=== PATIENT | female | born 1970 | race Caucasian/White ===

== ENCOUNTER 2016-06-03 08:46 | Emergency (ER) | payer BC ==
[2016-06-03] MEDS ORDERED: KETOROLAC 30 MG/ML 1 ML VIAL IVP STA (09:06)
[2016-06-03] MEDS ORDERED: SODIUM CHLORIDE 0.9% 1,000 ML IV STA (09:06)
--- NOTE | 2016-06-03 09:08 | ED ---
General Adult HPI - General Chief complaint: Abdominal Pain Stated complaint: back pain,kidney stone Time Seen by Provider: 06/03/16 09:02 Source: patient, RN notes reviewed Mode of arrival: ambulatory Limitations: no limitations - History of Present Illness Initial comments: Patient's a 46-year-old female with significant past medical history for kidney stones, who presents emergency room today with a chief complaint of left-sided flank pain that started 3 days ago. Patient does admit that these symptoms are consistent with kidney stones that she's had in the past. She denies any other complaints associated symptoms. Patient denies any recent fever, chills, shortness of breath, chest pain, abdominal pain, nausea or vomiting, numbness or tingling, dysuria or hematuria, constipation or diarrhea, headaches or visual changes, or any other complaints. - Related Data Home Medications Medication Instructions Recorded Confirmed Acetaminophen Tab [Tylenol Tab] 650 mg PO Q4H PRN 06/03/16 06/03/16 Famotidine [Pepcid] 20 mg PO DAILY 06/03/16 06/03/16 Metoprolol Succinate [Toprol XL] 50 mg PO DAILY 06/03/16 06/03/16 Naltrexone HCl/Bupropion HCl 1 tab PO QID 06/03/16 06/03/16 [Contrave ER 8-90 mg Tablet] Previous Rx's Medication Instructions Recorded Hydrocodone/Acetaminophen [[place] 1 each PO Q6HR PRN #20 tab 06/03/16 5-325] Ibuprofen [Motrin] 800 mg PO Q6HR PRN #30 tab 06/03/16 Ondansetron Odt [Zofran ODT] 4 mg PO Q8HR PRN #20 tab 06/03/16 Tamsulosin [Flomax] 0.4 mg PO DAILY #10 cap 06/03/16 Allergies Allergy/AdvReac Type Severity Reaction Status Date / Time codeine Allergy Anaphylaxis Verified 06/03/16 10:27 Review of Systems ROS Statement: Those systems with pertinent positive or pertinent negative responses have been documented in the HPI. ROS Other: All systems not noted in ROS Statement are negative. Past Medical History Past Medical History: GERD/Reflux, Hypertension Additional Past Medical History / Comment(s): kidney stones History of Any Multi-Drug Resistant Organisms: None Reported Past Surgical History: Tonsillectomy, Uterine Ablation Past Psychological History: No Psychological Hx Reported Smoking Status: Never smoker Past Alcohol Use History: Occasional Past Drug Use History: Marijuana General Exam - General Exam Comments Initial Comments: General: The patient is awake and alert, in no distress, and does not appear acutely ill. Eye: Pupils are equal, round and reactive to light, extra-ocular movements are intact. No nystagmus. There is normal conjunctiva bilaterally. No signs of icterus. Ears, nose, mouth and throat: There are moist mucous membranes and no oral lesions. Neck: The neck is supple, there is no tenderness or JVD. Cardiovascular: There is a regular rate and rhythm. No murmur, rub or gallop is appreciated. Respiratory: Lungs are clear to auscultation, respirations are non-labored, breath sounds are equal. No wheezes, stridor, rales, or rhonchi. Gastrointestinal: Soft, non-distended, non-tender abdomen without masses or organomegaly noted. There is no rebound or guarding present. Mild tenderness left flank. Bowel sounds are unremarkable. Musculoskeletal: Normal ROM, no tenderness. Strength 5/5. Sensation intact. Pulses equal bilaterally 2+. Neurological: A&O x 3. CN II-XII intact, There are no obvious motor or sensory deficits. Coordination appears grossly intact. Speech is normal. Skin: Skin is warm and dry and no rashes or lesions are noted. Psychiatric: Cooperative, appropriate mood & affect, normal judgment. Limitations: no limitations Course Vital Signs 06/03/16 06/03/16 08:47 10:33 Temperature 98.6 F 98.8 F Pulse Rate 82 70 Respiratory 18 16 Rate Blood Pressure 146/86 168/92 O2 Sat by Pulse 100 96 Oximetry Medical Decision Making - Medical Decision Making Is reexamined at this time shows no signs of distress. Feeling better after medication given in the emergency room. Patient does admit that these feelings are consistent with kidney shows a 7 the past. Does have some hematuria. No sign of infection. Remaining labs unremarkable. KUB negative for any acute abnormalities. - Lab Data Result diagrams: 06/03/16 10:00 06/03/16 10:00 Lab Results 06/03/16 06/03/16 06/03/16 Range/Units 09:09 10:00 10:00 WBC 6.9 (3.8-10.6) k/uL RBC 4.31 (3.80-5.40) m/uL Hgb 13.5 (11.4-16.0) gm/dL Hct 40.3 (34.0-46.0) % MCV 93.6 (80.0-100.0) fL MCH 31.3 (25.0-35.0) pg MCHC 33.4 (31.0-37.0) g/dL RDW 15.2 (11.5-15.5) % Plt Count 219 (150-450) k/uL Neutrophils % 65 % Lymphocytes % 24 % Monocytes % 5 % Eosinophils % 3 % Basophils % 1 % Neutrophils # 4.5 (1.3-7.7) k/uL Lymphocytes # 1.7 (1.0-4.8) k/uL Monocytes # 0.3 (0-1.0) k/uL Eosinophils # 0.2 (0-0.7) k/uL Basophils # 0.1 (0-0.2) k/uL Sodium 140 (137-145) mmol/L Potassium 4.6 (3.5-5.1) mmol/L Chloride 107 (98-107) mmol/L Carbon Dioxide 23 (22-30) mmol/L Anion Gap 10 mmol/L BUN 11 (7-17) mg/dL Creatinine 0.62 (0.52-1.04) mg/dL Est GFR (MDRD) Af Amer >60 (>60 ml/min/1.73 sqM) Est GFR (MDRD) Non-Af >60 (>60 ml/min/1.73 sqM) Glucose 97 (74-99) mg/dL Calcium 8.7 (8.4-10.2) mg/dL Total Bilirubin 0.4 (0.2-1.3) mg/dL AST 18 (14-36) U/L ALT 31 (9-52) U/L Alkaline Phosphatase 88 (38-126) U/L Total Protein 6.8 (6.3-8.2) g/dL Albumin 3.9 (3.5-5.0) g/dL Amylase 58 (30-110) U/L Lipase 123 (23-300) U/L Urine Color Yellow Urine Appearance Cloudy H (Clear) Urine pH 6.0 (5.0-8.0) Ur Specific [place] 1.020 (1.001-1.035) Urine Protein Trace H (Negative) Urine Glucose (UA) Negative (Negative) Urine Ketones Negative (Negative) Urine Blood Small H (Negative) Urine Nitrite Negative (Negative) Urine Bilirubin Negative (Negative) Urine Urobilinogen <2.0 (<2.0) mg/dL Ur Leukocyte Esterase Negative (Negative) Urine RBC <1 (0-5) /hpf Urine WBC 1 (0-5) /hpf Ur Squamous Epith Cells 8 H (0-4) /hpf Urine Mucus Rare H (None) /hpf Disposition Clinical Impression: Kidney stone Disposition: HOME SELF-CARE Condition: Good Instructions: Kidney Stones (ED) Additional Instructions: Please use medication as discussed. Please follow-up with family doctor in the next 2 days of symptoms have not improved. Please return to emergency room if the symptoms increase or worsen or for any other concerns. Prescriptions: Hydrocodone/Acetaminophen [[place] 5-325] 1 each PO Q6HR PRN #20 tab PRN Reason: Pain Ibuprofen [Motrin] 800 mg PO Q6HR PRN #30 tab PRN Reason: Pain Ondansetron Odt [Zofran ODT] 4 mg PO Q8HR PRN #20 tab PRN Reason: Nausea Tamsulosin [Flomax] 0.4 mg PO DAILY #10 cap Time of Disposition: 10:50
[2016-06-03 09:22] LABS: Appearance,Urine Cloudy (Clear); Bilirubin,Urine Negative (Negative); Glucose,Urine (UA) Negative (Negative); Ketones,Urine Negative (Negative); Leukocyte Esterase,Urine Negative (Negative); Mucus,Urine Rare /hpf; Nitrite,Urine Negative (Negative); Particle Count 2702; Protein,Urine Trace (Negative); RBC,Urine <1 /hpf (0-5); Squamous Epithelial Cell,Urine 8 /hpf (0-4); UA Billing (MACRO vs. MICRO) MICRO; Urobilinogen,Urine <2.0 mg/dL (<2.0); WBC,Urine 1 /hpf (0-5)
[2016-06-03 10:16] LABS: Basophils # (A) 0.1 k/uL (0-0.2); Basophils % (A) 1 %; CHCM 33.2; Eosinophils # (A) 0.2 k/uL (0-0.7); Eosinophils % (A) 3 %; HCT 40.3 % (34.0-46.0); HDW 2.46; HGB 13.5 gm/dL (11.4-16.0); Luc # (Auto) 0.14; Luc % (Auto) 2; Lymphocytes # (A) 1.7 k/uL (1.0-4.8); Lymphocytes % (A) 24 %; MCH 31.3 pg (25.0-35.0); MCHC 33.4 g/dL (31.0-37.0); MCV 93.6 fL (80.0-100.0); Mean Platelet Volume 6.7; Monocytes # (A) 0.3 k/uL (0-1.0); Monocytes % (A) 5 %; Neutrophils # (A) 4.5 k/uL (1.3-7.7); Neutrophils % (A) 65 %; RBC 4.31 m/uL (3.80-5.40); RDW 15.2 % (11.5-15.5); WBC 6.9 k/uL (3.8-10.6); WBC (Perox) 6.79
[2016-06-03 10:29] LABS: ALT 31 U/L (9-52); AST 18 U/L (14-36); Alkaline Phosphatase 88 U/L (38-126); Amylase 58 U/L (30-110); Anion Gap 10 mmol/L; Blood Urea Nitrogen 11 mg/dL (7-17); Calcium 8.7 mg/dL (8.4-10.2); Carbon Dioxide 23 mmol/L (22-30); Chloride 107 mmol/L (98-107); Glucose 97 mg/dL (74-99); Non-African American GFR(MDRD) >60 (>60 ml/min/1.73 sqM); Potassium 4.6 mmol/L (3.5-5.1); Sodium 140 mmol/L (137-145); Total Bilirubin 0.4 mg/dL (0.2-1.3); Total Protein 6.8 g/dL (6.3-8.2)
[2016-06-03 10:34] VITALS: PULSE 70; RESP 16; TEMP 98.8
--- NOTE | 2016-06-03 10:35 | XR ---
Abdomen HISTORY: Pain Frontal view of the abdomen on 2 images There is degenerative disc disease, mild spinal curvature in the lumbar spine. No pneumoperitoneum or bowel obstruction. Lung bases are clear. No pathologic calcification evident. IMPRESSION: No significant abnormalities evident within the abdomen as described
[2016-06-03 11:29] VITALS: BP 158/98
== END 2016-06-03 11:26 | disposition home or self-care (01) ==
LOC: EC 08:46
DX: N20.0 Calculus of kidney (principal); R10.9 Unspecified abdominal pain; I10 Essential (primary) hypertension; K21.9 Gastro-esophageal reflux disease without esophagitis; Z79.899 Other long term (current) drug therapy; Z88.5 Allergy status to narcotic agent
CPT/HCPCS: 36415; 80053; 82150; 83690; 85025; 81001; 74000; 99284; 96374; 96361; J1885

== ENCOUNTER → 2016-08-23 | Outpatient (CLI) | payer BC ==
[2016-08-23 15:06] VITALS: BP 170/85; PULSE 76; TEMP 98.4; BMI 39.8
--- NOTE | 2016-08-23 19:21 | P.HPBAR ---
Bariatric H&P - History & Physicial H&P Date: 08/23/16 History & Physicial: Visit/CC: initial bariatric consult Patient initial contact: Initial weight: Initial weight in pounds: Height: 5 ft 5 in Initial BMI: Last weight: Current weight: 108.635 kg Current weight in pounds: 239.50 Current BMI: 39.8 [place] body weight (based on NIH guidelines): 56.699 kg Excess body weight loss: The patient is a 46 year-old F who presents for Bariatric Assessment. Patient here today for a new patient clinic evaluation. She is interested in bariatric surgery. The patient suffers from heartburn that is controlled with PPIs. She knows a family member who I performed a sleeve gastrectomy on. Her weight is currently at her heaviest. She is 3 months into a 6 month supervised weight loss program. Denies DVT or dysphagia. Not interested in gastric bypass. No prior upper endoscopy. Review of Systems The patient denies any acute changes in vision or hearing, no dysphagia or odynophagia, no chest pain or shortness of breath, no dysuria or hematuria, no headache, no runny nose, no rectal bleeding or melena, no unexplained weight loss Past Medical History Past Medical History: GERD/Reflux, Hypertension Additional Past Medical History / Comment(s): kidney stones History of Any Multi-Drug Resistant Organisms: None Reported Past Surgical History: Tonsillectomy, Uterine Ablation Past Psychological History: No Psychological Hx Reported Smoking Status: Never smoker Surgical - Exam Vital Signs Temp Pulse BP 98.4 F 76 170/85 08/23/16 15:02 08/23/16 15:02 08/23/16 15:02 Physical exam: General: Well-developed, well-nourished HEENT: Normocephalic, sclerae nonicteric Abdomen: Nontender, nondistended Extremities: No edema Neuro: Alert and oriented Bariatric Assessment & Plan (1) Morbid obesity Narrative/Plan: The patient's chronic reflux was discussed. This is a relative contraindication to sleeve gastrectomy. The increased risk of exacerbation of reflux was reviewed. She is not interested in any other bariatric surgery at this point. We'll plan upper endoscopy in October. The patient will continue to consider her options. We'll plan follow-up back in the office after the upper endoscopy is performed. Status: Acute Bariatric Checklist Checklist: Plan: Checklist: EGD: 1. Hiatal hernia: 2. H. Pylori: HgbA1c: Vitamin D: Smoking: Never smoker Primary care physician referral: dr ortiz Psychiatry clearance: Cardiology clearance: Sleep study: Diet journal: VTE risk score: VTE risk level: Rehab needs at discharge:
== END ==
LOC: BARWHC3 14:15
PROVIDERS: ATTEND Surgery
DX: Z48.815 Encounter for surgical aftercare following surgery on the digestive system (principal); E66.01 Morbid (severe) obesity due to excess calories; Z98.84 Bariatric surgery status
CPT/HCPCS: 99211

== ENCOUNTER 2016-09-14 08:56 | Day surgery (SDC) | payer BC ==
[2016-09-08 09:10] VITALS: BMI 40.4
[2016-09-14] MEDS: LACTATED RINGERS 1,000 ML IV SCH ×2 (08:52→09:14)
[2016-09-14 08:53] VITALS: TEMP 98.3
[~2016-09-14 08:56] MED LIST changes: +LIDOCAINE 1% 20 ML VIAL (10MG/ML) FOR IV START INTRADERMA PRN; -PROPOFOL 10 MG/ML 20 ML VIAL IV ONE
--- NOTE | 2016-09-14 09:22 | P.GSHP ---
History of Present Illness H&P Date: 09/14/16 Chief Complaint: GERD Patient seen in the bariatric clinic as an outpatient. She is interested in sleeve gastrectomy. She has additional complaints of reflux at times. She has never had an upper endoscopy performed. Past Medical History Past Medical History: GERD/Reflux, Hypertension Additional Past Medical History / Comment(s): kidney stones History of Any Multi-Drug Resistant Organisms: None Reported Past Surgical History: Tonsillectomy, Uterine Ablation Additional Past Surgical History / Comment(s): BENIGN RT BREAST BX Past Anesthesia/Blood Transfusion Reactions: No Reported Reaction Smoking Status: Never smoker - Past Family History Mother Family Medical History: No Reported History Medications and Allergies Home Medications Medication Instructions Recorded Confirmed Type Famotidine [Pepcid] 40 mg PO DAILY 06/03/16 09/14/16 History Metoprolol Succinate [Toprol XL] 50 mg PO DAILY 06/03/16 09/14/16 History Hydrochlorothiazide [Hydrodiuril] 1 tab PO DAILY 08/23/16 09/14/16 History Allergies Allergy/AdvReac Type Severity Reaction Status Date / Time adhesive tape Allergy BLISTERS Verified 09/14/16 08:33 codeine Allergy Anaphylaxis Verified 09/14/16 08:33 Surgical - Exam Vital Signs Temp Pulse Resp BP Pulse Ox 98.3 F 78 18 170/98 97 09/14/16 08:51 09/14/16 08:51 09/14/16 08:51 09/14/16 08:51 09/14/16 08:51 Physical exam: General: Well-developed, well-nourished HEENT: Normocephalic, sclerae nonicteric Abdomen: Nontender, nondistended Extremities: No edema Neuro: Alert and oriented Assessment and Plan (1) GERD (gastroesophageal reflux disease) Narrative/Plan: Will proceed with upper endoscopy at this time. Status: Acute
--- NOTE | 2016-09-14 09:28 | P.PCN ---
Date of Procedure: 09/14/16 Preoperative Diagnosis: Postoperative Diagnosis: Procedure(s) Performed: Preoperative Dx: GERD, obesity Postoperative Dx: Minimal gastritis Procedure: EGD with Bx Anesthesia: Sedation Endoscopist: Dr. Angel Specimens: Antrum Endoscopic Procedure: The patient was on the endoscopy table in the left decubitus position. The Olympus gastroscope was inserted into the oropharynx and passed under direct visualization to the region of the third portion of the duodenum. From that point the scope was slowly withdrawn inspecting all surfaces carefully. There were no neoplastic inflammatory or polypoid lesions throughout the duodenum. The pylorus was widely patent. The stomach was carefully inspected. There was minimal gastritis present. A biopsy of the antrum took place to rule out H. pylori. Retroflexion revealed a normal hiatus. The esophagus was then carefully examined. There were no neoplastic inflammatory or polypoid lesions throughout the visualized esophagus. The patient was then taken to the recovery room in stable condition per anesthesia guidelines. Recommendations: Await biopsy results. Follow-up in the bariatric clinic. Implants: Indications for Procedure: Operative Findings: Description of Procedure:
[2016-09-14 09:37] VITALS: RESP 16
[2016-09-14 10:03] VITALS: BP 137/83; PULSE 71
== END 2016-09-14 10:13 | disposition home or self-care (01) ==
LOC: ORWHC2ENDO 08:56
PROVIDERS: ATTEND Surgery
DX: K29.50 Unspecified chronic gastritis without bleeding (principal); K21.9 Gastro-esophageal reflux disease without esophagitis; E66.01 Morbid (severe) obesity due to excess calories; I10 Essential (primary) hypertension; Z79.899 Other long term (current) drug therapy; Z88.5 Allergy status to narcotic agent; Z91.048 Other nonmedicinal substance allergy status
CPT/HCPCS: 43239; 81025; 88305; 88342

== ENCOUNTER → 2016-09-14 | Day surgery (SDC) | payer BC ==
[~2016-09-14] MED LIST: PROPOFOL 10 MG/ML 20 ML VIAL IV ONE
== END ==
LOC: ORWHC2ENDO 08:29
PROVIDERS: ATTEND Surgery
DX: E66.01 Morbid (severe) obesity due to excess calories (principal); Z88.5 Allergy status to narcotic agent; Z53.9 Procedure and treatment not carried out, unspecified reason

== ENCOUNTER → 2016-10-25 | Outpatient (CLI) | payer BC ==
[2016-10-25 15:39] VITALS: BP 156/89; PULSE 87; RESP 20; TEMP 99.1; BMI 39.6
== END | disposition home or self-care (01) ==
LOC: BARWHC3 14:48
PROVIDERS: ATTEND Surgery
DX: Z48.815 Encounter for surgical aftercare following surgery on the digestive system (principal); Z98.84 Bariatric surgery status; Z01.812 Encounter for preprocedural laboratory examination
CPT/HCPCS: 99211

== ENCOUNTER → 2017-01-02 | Outpatient (CLI) | payer BC ==
[2017-01-02 15:41] LABS: EKG EKG PERFORMED
[2017-01-02 15:50] LABS: Basophils % (A) 1 %; CH 31.8; CHCM 33.5; Eosinophils # (A) 0.2 k/uL (0-0.7); Eosinophils % (A) 3 %; HCT 40.3 % (34.0-46.0); HDW 2.48; HGB 13.3 gm/dL (11.4-16.0); Luc # (Auto) 0.17; Luc % (Auto) 2; Lymphocytes % (A) 26 %; MCH 31.5 pg (25.0-35.0); MCHC 33.1 g/dL (31.0-37.0); MCV 95.4 fL (80.0-100.0); Monocytes # (A) 0.4 k/uL (0-1.0); Monocytes % (A) 5 %; Neutrophils # (A) 4.9 k/uL (1.3-7.7); Neutrophils % (A) 63 %; RBC 4.23 m/uL (3.80-5.40); RDW 12.6 % (11.5-15.5); WBC 7.7 k/uL (3.8-10.6); WBC (Perox) 8.27
[2017-01-02 15:57] LABS: ALT 42 U/L (9-52); AST 27 U/L (14-36); Alkaline Phosphatase 84 U/L (38-126); Anion Gap 9 mmol/L; Blood Urea Nitrogen 9 mg/dL (7-17); Calcium 9.4 mg/dL (8.4-10.2); Carbon Dioxide 27 mmol/L (22-30); Chloride 106 mmol/L (98-107); Glucose 83 mg/dL (74-99); Non-African American GFR(MDRD) >60 (>60 ml/min/1.73 sqM); Potassium 4.2 mmol/L (3.5-5.1); Sodium 142 mmol/L (137-145); Total Bilirubin 0.3 mg/dL (0.2-1.3)
== END | disposition home or self-care (01) ==
LOC: LABPAT 15:02
PROVIDERS: ATTEND Surgery
DX: Z01.810 Encounter for preprocedural cardiovascular examination (principal); Z01.812 Encounter for preprocedural laboratory examination
CPT/HCPCS: 36415; 80053; 85025; 93005

== ENCOUNTER → 2017-02-01 | Outpatient (CLI) | payer BC ==
[2017-02-01 10:01] VITALS: BP 118/68; PULSE 91; RESP 16; TEMP 98.7; BMI 38.5
--- NOTE | 2017-02-01 10:04 | P.BASOAP ---
Subjective Progress Note Date: 02/01/17 Principal diagnosis: Morbid obesity Patient here today after sleeve gastrectomy last week. She is doing well. Tolerating liquid diet. No discomfort at this time. Denies heartburn. No vomiting. No nausea. Denies fevers or chills. She is tolerating approximately 45 g of protein daily. She has 60-80 ounces of liquids daily. Objective - Vital Signs Vital signs: Vital Signs Temp 98.7 F 02/01/17 09:58 Pulse 91 02/01/17 09:58 Resp 16 02/01/17 09:58 BP 118/68 02/01/17 09:58 Pulse Ox Intake & Output 01/31/17 02/01/17 02/01/17 18:59 06:59 18:59 Weight 105.035 kg - Exam Abdomen: Soft, nondistended, nontender, incision clean and dry Assessment/Plan (1) Morbid obesity Narrative/Plan: Doing well postoperatively. Dietary evaluation today. Follow-up 2 weeks. Plan: Date: 02/01/17 Initial Weight: 108.635 kg Initial BMI: 39.8 Current Weight: 105.035 kg Current BMI: 38.5 Type of Surgery: Total Volume in Band: Previous Volume: Volume Removed: Volume Added: Band Size:
== END | disposition home or self-care (01) ==
LOC: BARWHC3 09:47
PROVIDERS: ATTEND Surgery
DX: E66.01 Morbid (severe) obesity due to excess calories (principal); Z68.38 Body mass index [BMI] 38.0-38.9, adult
CPT/HCPCS: 97803; 99211

== ENCOUNTER → 2017-02-21 | Outpatient (CLI) | payer BC ==
[2017-02-21 15:02] VITALS: BP 184/90; PULSE 76; RESP 16; TEMP 99.4; BMI 37.5
[2017-02-21 16:19] LABS: HCT 39.3 % (34.0-46.0); HGB 12.7 gm/dL (11.4-16.0); MCH 30.6 pg (25.0-35.0); MCHC 32.2 g/dL (31.0-37.0); MCV 95.1 fL (80.0-100.0); Mean Platelet Volume 7.5; Platelet Count 312 k/uL (150-450); RBC 4.13 m/uL (3.80-5.40); RDW 13.7 % (11.5-15.5); WBC 7.8 k/uL (3.8-10.6)
[2017-02-21 16:22] LABS: ALT 48 U/L (9-52); AST 21 U/L (14-36); Albumin 4.2 g/dL (3.5-5.0); Alkaline Phosphatase 66 U/L (38-126); Anion Gap 10 mmol/L; Blood Urea Nitrogen 12 mg/dL (7-17); Calcium 9.4 mg/dL (8.4-10.2); Carbon Dioxide 28 mmol/L (22-30); Chloride 105 mmol/L (98-107); Glucose 91 mg/dL (74-99); Potassium 4.6 mmol/L (3.5-5.1); Sodium 143 mmol/L (137-145); Total Bilirubin 0.5 mg/dL (0.2-1.3); Total Protein 6.9 g/dL (6.3-8.2)
--- NOTE | 2017-02-21 17:12 | P.BASOAP ---
Subjective Progress Note Date: 02/21/17 Principal diagnosis: Morbid obesity Patient doing well today. Surgery was approximately 1 month ago. She is due for one month labs. 6 pounds of weight loss. Actually is been taking in too much protein and we'll decrease that somewhat. Adequate liquid intake. Denies nausea or vomiting. Only had one episode of heartburn after eating Fritos. Objective - Vital Signs Vital signs: Vital Signs Temp 99.4 F 02/21/17 15:00 Pulse 76 02/21/17 15:00 Resp 16 02/21/17 15:00 BP 184/90 02/21/17 15:00 Pulse Ox Intake & Output 02/20/17 02/21/17 02/21/17 18:59 06:59 18:59 Weight 102.228 kg - Exam Abdomen: Soft, nontender, nondistended, incision clean and dry - Labs CBC & Chem 7: 02/21/17 15:43 02/21/17 15:43 Assessment/Plan (1) Morbid obesity Narrative/Plan: Continue dietary and excised regimen. Check one month labs. Decrease overall protein intake. Follow-up 4-6 weeks Plan: Date: 02/21/17 Initial Weight: 108.635 kg Initial BMI: 39.8 Current Weight: 102.228 kg Current BMI: 37.5 Type of Surgery: Total Volume in Band: Previous Volume: Volume Removed: Volume Added: Band Size:
[2017-02-22 01:50] LABS: Vitamin D 25 Hydroxy 20.1 ng/mL (30.0-100.0)
[2017-02-22 01:51] LABS: Folate, Serum 18.8 ng/mL
== END | disposition home or self-care (01) ==
LOC: BARWHC3 14:38
PROVIDERS: ATTEND Surgery
DX: E66.01 Morbid (severe) obesity due to excess calories (principal); Z68.37 Body mass index [BMI] 37.0-37.9, adult
CPT/HCPCS: 80053; 82306; 82607; 82746; 83540; 84425; 85027; 97803; 99211

== ENCOUNTER → 2017-04-04 | Outpatient (CLI) | payer BC ==
--- NOTE | 2017-04-06 08:59 | MM ---
Reason for exam: screening (asymptomatic). Last mammogram was performed 1 year and 5 months ago. History: Benign US biopsy breast VAD RT of the right breast, November 06, 2015. Physical Findings: A clinical breast exam by your physician is recommended on an annual basis and results should be correlated with mammographic findings. MG 3D Screening Mammo W/Cad Bilateral CC and MLO view(s) were taken. Prior study comparison: November 06, 2015, right breast MG diagnostic mammo RT wo CAD. October 27, 2015, right breast MG work up mamm w CAD RT. The breast tissue is heterogeneously dense. This may lower the sensitivity of mammography. Previous mammotome biopsy in the right breast. No significant changes when compared with prior studies. ASSESSMENT: Negative, BI-RAD 1 RECOMMENDATION: Routine screening mammogram of both breasts in 1 year.
== END | disposition home or self-care (01) ==
LOC: RADMAMWWP 14:55
PROVIDERS: ATTEND Obstetrics & Gynecology
DX: Z12.31 Encounter for screening mammogram for malignant neoplasm of breast (principal)
CPT/HCPCS: 77063; 77067

== ENCOUNTER → 2017-04-25 | Outpatient (CLI) | payer BC ==
[2017-04-25 15:22] VITALS: BP 169/79; PULSE 73; RESP 16; TEMP 99.1
[2017-04-25 15:29] VITALS: BMI 33.9
[2017-04-25 16:24] LABS: HCT 41.6 % (34.0-46.0); HGB 13.7 gm/dL (11.4-16.0); MCH 29.7 pg (25.0-35.0); MCHC 32.8 g/dL (31.0-37.0); MCV 90.7 fL (80.0-100.0); Mean Platelet Volume 7.6; Platelet Count 263 k/uL (150-450); RBC 4.59 m/uL (3.80-5.40); RDW 13.4 % (11.5-15.5); WBC 6.9 k/uL (3.8-10.6)
[2017-04-25 16:48] LABS: ALT 17 U/L (9-52); AST 18 U/L (14-36); Albumin 4.3 g/dL (3.5-5.0); Alkaline Phosphatase 71 U/L (38-126); Anion Gap 11 mmol/L; Blood Urea Nitrogen 17 mg/dL (7-17); Calcium 9.5 mg/dL (8.4-10.2); Carbon Dioxide 27 mmol/L (22-30); Chloride 104 mmol/L (98-107); Glucose 88 mg/dL (74-99); Potassium 4.4 mmol/L (3.5-5.1); Sodium 142 mmol/L (137-145); Total Bilirubin 0.6 mg/dL (0.2-1.3)
--- NOTE | 2017-04-25 16:55 | P.BASOAP ---
Subjective Progress Note Date: 04/25/17 Principal diagnosis: Morbid obesity Patient has had good weight loss since last visit. No nausea or vomiting. Rarely has episodes of reflux. She is due for 3 months labs at this time. Objective - Vital Signs Vital signs: Vital Signs Temp 99.1 F 04/25/17 15:04 Pulse 73 04/25/17 15:04 Resp 16 04/25/17 15:04 BP 169/79 04/25/17 15:04 Pulse Ox Intake & Output 04/24/17 04/25/17 04/25/17 18:59 06:59 18:59 Weight 92.533 kg - Exam Abdomen: Soft, nontender, nondistended - Labs CBC & Chem 7: 04/25/17 15:52 04/25/17 15:52 Labs: Abnormal Lab Results - Last 24 Hours (Table) 04/25/17 Range/Units 15:52 Creatinine 0.50 L (0.52-1.04) mg/dL Assessment/Plan (1) Morbid obesity Narrative/Plan: Will check 3 months labs at this time. Continue antiacids for reflux. Follow- up 6 weeks. Plan: Date: 04/25/17 Initial Weight: 108.635 kg Initial BMI: Current Weight: 92.533 kg Current BMI: 33.9 Type of Surgery: Total Volume in Band: Previous Volume: Volume Removed: Volume Added: Band Size:
[2017-04-26 01:01] LABS: Vitamin D 25 Hydroxy 24.3 ng/mL (30.0-100.0)
== END | disposition home or self-care (01) ==
LOC: BARWHC3 14:15
PROVIDERS: ATTEND Surgery
DX: E66.01 Morbid (severe) obesity due to excess calories (principal); K90.89 Other intestinal malabsorption; E55.9 Vitamin D deficiency, unspecified; Z71.3 Dietary counseling and surveillance; Z68.33 Body mass index [BMI] 33.0-33.9, adult
CPT/HCPCS: 36415; 80053; 82306; 82607; 83540; 84425; 85027; 97803; 99211

== ENCOUNTER → 2017-06-06 | Outpatient (CLI) | payer BC ==
[2017-06-06 13:08] VITALS: BP 159/89; PULSE 71; RESP 16; TEMP 98.5; BMI 33.1
--- NOTE | 2017-06-06 14:47 | P.BASOAP ---
Subjective Progress Note Date: 06/06/17 Principal diagnosis: Morbid obesity Patient doing well today. 5 pounds weight loss since last visit. She is exercising more. Over 60 g of protein per day. Last visit she had her 3 month labs checked and her vitamin D was low. She started vitamin supplementation. No heartburn on her antiacids. Objective - Vital Signs Vital signs: Vital Signs Temp 98.5 F 06/06/17 13:06 Pulse 71 06/06/17 13:06 Resp 16 06/06/17 13:06 BP 159/89 06/06/17 13:06 Pulse Ox Intake & Output 06/05/17 06/06/17 06/06/17 18:59 06:59 18:59 Weight 90.265 kg - Exam Abdomen: Soft, nontender, nondistended Assessment/Plan (1) Morbid obesity Narrative/Plan: Continue dietary and exercise regimen. Continue vitamin D supplementation. Will plan follow-up visit in 6 weeks. We'll check 6 month labs at that time. Plan: Date: 06/06/17 Initial Weight: 108.635 kg Initial BMI: 39.8 Current Weight: 90.265 kg Current BMI: 33.1 Type of Surgery: Total Volume in Band: Previous Volume: Volume Removed: Volume Added: Band Size:
== END | disposition home or self-care (01) ==
LOC: BARWHC3 12:41
PROVIDERS: ATTEND Surgery
DX: E66.01 Morbid (severe) obesity due to excess calories (principal); Z68.33 Body mass index [BMI] 33.0-33.9, adult
CPT/HCPCS: 99211

== ENCOUNTER → 2017-07-25 | Outpatient (CLI) | payer BC ==
[2017-07-25 13:06] VITALS: BP 190/85; PULSE 53; RESP 20; TEMP 98.6; BMI 31.9
--- NOTE | 2017-07-25 13:53 | P.BASOAP ---
Subjective Progress Note Date: 07/25/17 Principal diagnosis: Morbid obesity Patient returns to clinic today. Sleeve gastrectomy last January. Last visit in May. Doing well at this time. Her reflux is improved after buying a new pillow. Still on PPIs. No nausea or vomiting. No increase in hunger. No abdominal pain. She does complain of a lump in the left upper arm. This mass has been present for the last few years. Objective - Vital Signs Vital signs: Vital Signs Temp 98.6 F 07/25/17 13:02 Pulse 53 L 07/25/17 13:02 Resp 20 07/25/17 13:02 BP 190/85 07/25/17 13:02 Pulse Ox Intake & Output 07/24/17 07/25/17 07/25/17 18:59 06:59 18:59 Weight 87.135 kg - Exam Abdomen: Soft, nontender, nondistended Left upper arm with 4 x 5 cm lipomatous mass Assessment/Plan (1) Morbid obesity Narrative/Plan: Continue antiacid therapy. Will schedule outpatient lipoma removal. Follow-up in bariatric center in 6 weeks. Plan: Date: 07/25/17 Initial Weight: 108.635 kg Initial BMI: 39.8 Current Weight: 87.135 kg Current BMI: 31.9 Type of Surgery: Total Volume in Band: Previous Volume: Volume Removed: Volume Added: Band Size:
[2017-07-25 14:58] LABS: HGB 14.5 gm/dL (11.4-16.0); MCH 31.4 pg (25.0-35.0); MCV 95.1 fL (80.0-100.0); Mean Platelet Volume 7.3; Platelet Count 248 k/uL (150-450); RBC 4.63 m/uL (3.80-5.40); RDW 13.8 % (11.5-15.5)
[2017-07-25 15:16] LABS: ALT 28 U/L (9-52); AST 18 U/L (14-36); Albumin 4.2 g/dL (3.5-5.0); Alkaline Phosphatase 67 U/L (38-126); Anion Gap 13 mmol/L; Blood Urea Nitrogen 18 mg/dL (7-17); Calcium 9.3 mg/dL (8.4-10.2); Carbon Dioxide 27 mmol/L (22-30); Chloride 104 mmol/L (98-107); Glucose 86 mg/dL (74-99); Potassium 4.8 mmol/L (3.5-5.1); Sodium 144 mmol/L (137-145); Total Bilirubin 0.6 mg/dL (0.2-1.3); Total Protein 6.6 g/dL (6.3-8.2)
[2017-07-26 01:36] LABS: Vitamin D 25 Hydroxy 70.1 ng/mL (30.0-100.0)
[2017-07-26 01:42] LABS: Folate, Serum 18.3 ng/mL
== END | disposition home or self-care (01) ==
LOC: BARWHC3 12:34
PROVIDERS: ATTEND Surgery
DX: Z09 Encounter for follow-up examination after completed treatment for conditions other than malignant neoplasm (principal); E66.01 Morbid (severe) obesity due to excess calories; K21.9 Gastro-esophageal reflux disease without esophagitis; R22.32 Localized swelling, mass and lump, left upper limb; Z98.84 Bariatric surgery status; Z68.31 Body mass index [BMI] 31.0-31.9, adult
CPT/HCPCS: 36415; 80053; 82306; 82607; 82746; 83540; 84425; 85027; 97803; 99211

== ENCOUNTER → 2017-09-26 | Outpatient (CLI) | payer BC ==
[2017-09-26 13:17] VITALS: BP 148/78; PULSE 72; TEMP 98
--- NOTE | 2017-09-26 17:04 | P.BASOAP ---
Subjective Progress Note Date: 09/26/17 Principal diagnosis: Morbid obesity Patient doing well today. She has lost 6 pounds since her last visit. Remains on PPIs. Still having issues with the left arm lipoma. She is scheduled for surgical excision this . Objective - Vital Signs Vital signs: Vital Signs Temp 98 F 09/26/17 13:12 Pulse 72 09/26/17 13:12 Resp BP 148/78 09/26/17 13:12 Pulse Ox Intake & Output 09/25/17 09/26/17 09/26/17 18:59 06:59 18:59 Weight 84.368 kg - Exam Abdomen: Soft, nontender, nondistended Left upper arm brachial region medially with a 3-4 cm subcutaneous fatty mass Assessment/Plan (1) Morbid obesity Narrative/Plan: Continue antiacids. We'll proceed with surgical excision of the lipoma this week. Follow-up bariatric clinic for 6 week. Plan: Date: 09/26/17 Initial Weight: 108.635 kg Initial BMI: Current Weight: 84.368 kg Current BMI: Type of Surgery: Total Volume in Band: Previous Volume: Volume Removed: Volume Added: Band Size:
== END | disposition home or self-care (01) ==
LOC: BARWHC3 12:34
PROVIDERS: ATTEND Surgery
DX: E66.01 Morbid (severe) obesity due to excess calories (principal); D17.22 Benign lipomatous neoplasm of skin and subcutaneous tissue of left arm; Z68.31 Body mass index [BMI] 31.0-31.9, adult
CPT/HCPCS: 99211

== ENCOUNTER 2017-09-28 15:17 | Day surgery (SDC) | payer BC ==
[2017-09-26 16:33] VITALS: BMI 30.4
[2017-09-28 12:04] VITALS: RESP 16; TEMP 98.2
--- NOTE | 2017-09-28 12:52 | P.GSHP ---
History of Present Illness H&P Date: 09/28/17 Chief Complaint: Left arm mass 47-year-old female known to our service. She has had complaints of a mass in the left upper arm. This is enlarging in size gradually and is causing pain. This has not been previously biopsied or excised. Past Medical History Past Medical History: GERD/Reflux, Hypertension, Skin Disorder Additional Past Medical History / Comment(s): Kidney stones. FATTY CYST LT UPPER ARM. History of Any Multi-Drug Resistant Organisms: None Reported Past Surgical History: Bariatric Surgery, Ear Surgery, Tonsillectomy, Uterine Ablation Additional Past Surgical History / Comment(s): EAR SURG X3. EGD. GASTRIC SLEEVE 01/2017. Past Anesthesia/Blood Transfusion Reactions: No Reported Reaction, Motion Sickness Smoking Status: Never smoker - Past Family History Mother Family Medical History: No Reported History Medications and Allergies Home Medications Medication Instructions Recorded Confirmed Type Metoprolol Succinate [Toprol XL] 75 mg PO DAILY 06/03/16 09/28/17 History Famotidine [Pepcid] 40 mg PO DAILY 01/23/17 09/28/17 History Cetirizine HCl [Zyrtec] 10 mg PO DAILY 09/26/17 09/28/17 History Hydrochlorothiazide [Hydrodiuril] 12.5 mg PO DAILY 09/26/17 09/28/17 History Multivitamin [Multivitamins Adult 2 tab PO DAILY 09/26/17 09/28/17 History Gummies] Allergies Allergy/AdvReac Type Severity Reaction Status Date / Time adhesive tape Allergy BLISTERS Verified 09/26/17 16:10 codeine Allergy Anaphylaxis Verified 09/26/17 16:10 Surgical - Exam Vital Signs Temp Pulse Resp BP Pulse Ox 98.2 F 73 16 133/87 98 09/28/17 11:58 09/28/17 11:58 09/28/17 11:58 09/28/17 11:58 09/28/17 11:58 Physical exam: General: Well-developed, well-nourished HEENT: Normocephalic, sclerae nonicteric Abdomen: Nontender, nondistended Extremities: No edema, lipomatous mass left upper arm measuring 4-5 cm in diameter Neuro: Alert and oriented Assessment and Plan (1) Mass of left upper extremity Narrative/Plan: We'll proceed with surgical excision at this time. Risks of bleeding, infection , recurrence, nerve injury were reviewed. She understands and wishes to proceed. Status: Acute Code(s): R22.32 - LOCALIZED SWELLING, MASS AND LUMP, LEFT UPPER LIMB SNOMED Code(s): 204120860
--- NOTE | 2017-09-28 14:14 | P.OP ---
Date of Procedure: 09/28/17 Procedure(s) Performed: PREOPERATIVE DIAGNOSIS: Left arm mass POSTOPERATIVE DIAGNOSIS: Same PROCEDURE: Excision left arm mass with intermediate closure SURGEON: Stanley EBL: Minimal ANESTHESIA: Sedation plus local COMPLICATIONS: None OPERATIVE PROCEDURE: Patient placed in the operative table in the supine position. The patient's left upper arm was prepped and draped in the usual sterile fashion. The skin was closed with Marcaine solution. A longitudinal incision made overlying the mass using scalpel. The mass was excised with blunt dissection and cautery. This measured 4.5 cm in size. The closure measured 2.5 cm in size. The subcutaneous tissues were closed using interrupted 3-0 Vicryl sutures and the skin using interrupted 4-0 Monocryl sutures. Steri-Strips and sterile dressings were applied. DISPOSITION: Stable to recovery room
[2017-09-28 14:55] VITALS: BP 116/76; PULSE 47
[~2017-09-28 15:17] MED LIST changes: +BUPIVACAINE (PF) 0.5% 30 ML VIAL SQ ONE; +DEXAMETHASONE SOD PHOSPHATE 10 MG/ML 1 ML VIAL IV ONE; +HYDROcodone/APAP 5-325MG 1 EACH TAB PO PRN; +HYDROmorphone 0.5 MG/0.5 ML SYRINGE IVP PRN; +KETAMINE 10 MG/ML 20 ML VIAL ONE; +LACTATED RINGERS 1,000 ML IV SCH; +LIDOCAINE 1% 20 ML VIAL (10MG/ML) FOR IV START INTRADERMA ONE; -LIDOCAINE 1% 20 ML VIAL (10MG/ML) FOR IV START INTRADERMA PRN; +LIDOCAINE 1% INJ 10MG/ML (20 ML MDV) ONE; +MIDAZOLAM 2 MG/2 ML VIAL ONE; +NALOXONE 0.4 MG/ML 1 ML VIAL IV PRN; +ONDANSETRON 4 MG/2 ML VIAL IVP ONE; +PROPOFOL 10 MG/ML 20 ML VIAL IV ONE; +Pre Op ABX Message 1 EACH MISC MISCELLANE ONE; +fentaNYL (PF) 50 MCG/ML 2 ML AMP ONE
== END 2017-09-28 15:19 | disposition home or self-care (01) ==
LOC: OR 15:17
PROVIDERS: ATTEND Surgery
DX: D17.22 Benign lipomatous neoplasm of skin and subcutaneous tissue of left arm (principal); K21.9 Gastro-esophageal reflux disease without esophagitis; I10 Essential (primary) hypertension; Z79.899 Other long term (current) drug therapy; Z88.5 Allergy status to narcotic agent; Z91.048 Other nonmedicinal substance allergy status; Z98.84 Bariatric surgery status
CPT/HCPCS: 81025; 88304; 11406; 12031; J2250; J1100; J2405; J2001; J3010; J2704

== ENCOUNTER → 2017-11-21 | Outpatient (CLI) | payer BC ==
[2017-11-21 15:22] VITALS: BP 134/85; PULSE 82; RESP 16; TEMP 98; BMI 30.6
--- NOTE | 2017-11-21 15:45 | P.PN ---
Subjective Progress Note Date: 11/21/17 Principal diagnosis: Morbid obesity Patient doing well today. She has lost 2 pounds since her last visit. Her left arm incision from previous lipoma excision is healing nicely. Still with very little appetite. No vomiting. She remains on an exercise regimen. She will be going back to the [email or web address] gym in the near future. Still taking antiacids. No symptoms of reflux while on antiacids. She has 10 months postop. Objective - Vital Signs Vital signs: Vital Signs Temp 98 F 11/21/17 15:19 Pulse 82 11/21/17 15:19 Resp 16 11/21/17 15:19 BP 134/85 11/21/17 15:19 Pulse Ox Intake & Output 11/20/17 11/21/17 11/21/17 18:59 06:59 18:59 Weight 83.461 kg - Exam Abdomen: Soft, nontender, nondistended Assessment and Plan (1) Morbid obesity Narrative/Plan: Patient doing well at this time. Continue dietary and exercise regimen. Follow -up 2 months. Current Visit: No Status: Acute Code(s): E66.01 - MORBID (SEVERE) OBESITY DUE TO EXCESS CALORIES SNOMED Code(s): 683464284
== END ==
LOC: BARWHC3 15:12
PROVIDERS: ATTEND Surgery
DX: E66.01 Morbid (severe) obesity due to excess calories (principal); Z68.30 Body mass index [BMI] 30.0-30.9, adult
CPT/HCPCS: 99211

== ENCOUNTER → 2018-01-23 | Outpatient (CLI) | payer BC ==
[2018-01-23 14:12] VITALS: BP 134/92; PULSE 103; TEMP 98.2; BMI 28.6
--- NOTE | 2018-01-23 14:39 | P.BASOAP ---
Subjective Progress Note Date: 01/23/18 Principal diagnosis: Morbid obesity Patient returns for reevaluation. Doing well at this time. Recently ran out of her antacid prescription with some mild heartburn. Denies vomiting. She is due for one year labs. She has lost 12 pounds since her last visit. She is more active than previously. Objective - Vital Signs Vital signs: Vital Signs Temp 98.2 F 01/23/18 14:05 Pulse 103 H 01/23/18 14:05 Resp BP 134/92 01/23/18 14:05 Pulse Ox Intake & Output 01/22/18 01/23/18 01/23/18 18:59 06:59 18:59 Weight 78.018 kg - Exam Abdomen: Soft, nontender, nondistended Assessment/Plan (1) Morbid obesity Narrative/Plan: Patient doing well at this time. We'll renew prescription for antiacids. Will try every other day dosing. Recheck 1 year labs. Continue dietary and exercise regimen. Follow-up 2-3 months. Plan: Date: 01/23/18 Initial Weight: 108.635 kg Initial BMI: 39.8 Current Weight: 78.018 kg Current BMI: 28.6 Type of Surgery: Total Volume in Band: Previous Volume: Volume Removed: Volume Added: Band Size:
[2018-01-23 15:03] LABS: HCT 43.8 % (34.0-46.0); HGB 14.1 gm/dL (11.4-16.0); MCH 31.8 pg (25.0-35.0); MCHC 32.2 g/dL (31.0-37.0); MCV 98.8 fL (80.0-100.0); Mean Platelet Volume 7.1; Platelet Count 243 k/uL (150-450); RBC 4.44 m/uL (3.80-5.40); RDW 12.9 % (11.5-15.5); WBC 7.3 k/uL (3.8-10.6)
[2018-01-23 19:37] LABS: Albumin 4.3 g/dL (3.80-4.90); Albumin/Globulin Ratio 2.39 (1.20-2.10); Anion Gap 6.6 mmol/L (4.00-12.00); Calcium 9.4 mg/dL (8.7-10.3); Carbon Dioxide 29.4 mmol/L (21.6-31.8); Globulin 1.8 g/dL (2.1-3.7); Potassium 4.5 mmol/L (3.5-5.5); Total Bilirubin 0.8 mg/dL (0.3-1.2); Total Protein 6.1 g/dL (6.2-8.2)
[2018-01-23 19:43] LABS: Vitamin D 25 Hydroxy 44.6 ng/mL (30.0-100.0)
[2018-01-23 20:10] LABS: Folate, Serum 23.8 ng/mL
== END ==
LOC: BARWHC3 13:50
PROVIDERS: ATTEND Surgery
DX: E66.01 Morbid (severe) obesity due to excess calories (principal); K90.89 Other intestinal malabsorption; E55.9 Vitamin D deficiency, unspecified; Z68.28 Body mass index [BMI] 28.0-28.9, adult
CPT/HCPCS: 36415; 80053; 82306; 82607; 82746; 83540; 84425; 85027; 99211

== ENCOUNTER 2018-02-28 21:10 | Emergency (ER) | payer BC ==
[2018-02-28 21:17] VITALS: TEMP 97.6
--- NOTE | 2018-02-28 21:58 | XR ---
EXAMINATION TYPE: XR KUB DATE OF EXAM: 02/28/2018 COMPARISON: 06/03/2016 HISTORY: Left flank pain TECHNIQUE: 2 views upright FINDINGS: Bowel gas pattern is normal. There is no sign of intestinal obstruction or pneumoperitoneum . Fecal pattern is normal. There is no evidence of a mass. There are no pathologic calcifications ove r the kidneys. IMPRESSION: Nonacute abdomen. No change.
[2018-02-28 22:00] LABS: Appearance,Urine Clear (Clear); Basophils # (A) 0.1 k/uL (0-0.2); Basophils % (A) 1 %; Bilirubin,Urine Negative (Negative); Blood,Urine Negative (Negative); Color,Urine Yellow; Eosinophils # (A) 0.3 k/uL (0-0.7); Eosinophils % (A) 4 %; Glucose,Urine (UA) Negative (Negative); HCT 44.5 % (34.0-46.0); HGB 14.9 gm/dL (11.4-16.0); Ketones,Urine Negative (Negative); Leukocyte Esterase,Urine Negative (Negative); Lymphocytes # (A) 2.9 k/uL (1.0-4.8); Lymphocytes % (A) 35 %; MCH 32.9 pg (25.0-35.0); MCHC 33.5 g/dL (31.0-37.0); MCV 98.2 fL (80.0-100.0); Mean Platelet Volume 7.2; Monocytes # (A) 0.4 k/uL (0-1.0); Monocytes % (A) 5 %; Neutrophils # (A) 4.5 k/uL (1.3-7.7); Neutrophils % (A) 54 %; Nitrite,Urine Negative (Negative); PH, Urine 5.5 (5.0-8.0); Platelet Count 236 k/uL (150-450); Protein,Urine Trace (Negative); RBC 4.53 m/uL (3.80-5.40); RDW 12.8 % (11.5-15.5); Specific Gravity,Urine 1.034 (1.001-1.035); WBC 8.5 k/uL (3.8-10.6)
[2018-02-28 22:09] LABS: ALT 22 U/L (9-52); AST 18 U/L (14-36); Albumin 4.4 g/dL (3.5-5.0); Alkaline Phosphatase 58 U/L (38-126); Amylase 61 U/L (30-110); Anion Gap 7 mmol/L; Blood Urea Nitrogen 14 mg/dL (7-17); Calcium 9.4 mg/dL (8.4-10.2); Carbon Dioxide 26 mmol/L (22-30); Chloride 106 mmol/L (98-107); Glucose 104 mg/dL (74-99); Lipase 148 U/L (23-300); Potassium 3.9 mmol/L (3.5-5.1); Sodium 139 mmol/L (137-145); Total Bilirubin 0.7 mg/dL (0.2-1.3)
[2018-02-28] MEDS ORDERED: MORPHINE SULFATE 4 MG/ML SYRINGE IV STA (22:29)
[2018-02-28] MEDS ORDERED: KETOROLAC 30 MG/ML 1 ML VIAL IVP STA (22:29)
--- NOTE | 2018-02-28 22:37 | ED ---
Abdominal Pain HPI - General Chief Complaint: Abdominal Pain Stated Complaint: Poss kidney stones Time Seen by Provider: 02/28/18 21:33 Source: patient Mode of arrival: ambulatory Limitations: no limitations - History of Present Illness MD Complaint: abdominal pain Onset/Timin -: days(s) Location: R flank Migration to: no migration Severity: moderate Quality: aching, sharp Consistency: constant Improves With: nothing Worsens With: nothing Associated Symptoms: denies other symptoms - Related Data Home Medications Medication Instructions Recorded Confirmed Metoprolol Succinate [Toprol XL] 75 mg PO DAILY 06/03/16 02/28/18 Famotidine [Pepcid] 40 mg PO DAILY 01/23/17 02/28/18 Cholecalciferol [Vitamin D3] 2,000 unit PO DAILY 02/28/18 02/28/18 Ibuprofen [Motrin Ib] 600 mg PO ONCE 02/28/18 02/28/18 Previous Rx's Medication Instructions Recorded Ciprofloxacin HCl [Cipro] 500 mg PO Q12HR #14 tablet 03/01/18 Famotidine [Pepcid] 20 mg PO BID #14 tablet 03/01/18 Ondansetron Odt [Zofran ODT] 4 mg PO Q8HR PRN #10 tab 03/01/18 metroNIDAZOLE [Flagyl] 500 mg PO TID #21 tab 03/01/18 Allergies Allergy/AdvReac Type Severity Reaction Status Date / Time adhesive tape Allergy BLISTERS Verified 02/28/18 21:33 codeine Allergy Anaphylaxis Verified 02/28/18 21:33 Review of Systems ROS Statement: Those systems with pertinent positive or pertinent negative responses have been documented in the HPI. ROS Other: All systems not noted in ROS Statement are negative. Constitutional: Denies: fever, chills Respiratory: Reports: cough. Denies: dyspnea Cardiovascular: Denies: chest pain, palpitations, orthopnea, edema Gastrointestinal: Reports: abdominal pain, nausea. Denies: vomiting, diarrhea, constipation, melena, hematochezia Genitourinary: Denies: dysuria, frequency, hematuria Musculoskeletal: Denies: back pain Skin: Denies: rash Neurological: Denies: headache, weakness, numbness Past Medical History Past Medical History: GERD/Reflux, Hypertension, Skin Disorder Additional Past Medical History / Comment(s): Kidney stones. FATTY CYST LT UPPER ARM. History of Any Multi-Drug Resistant Organisms: None Reported Past Surgical History: Bariatric Surgery, Ear Surgery, Tonsillectomy, Uterine Ablation Additional Past Surgical History / Comment(s): EAR SURG X3. EGD. GASTRIC SLEEVE 01/2017. Past Anesthesia/Blood Transfusion Reactions: No Reported Reaction, Motion Sickness Past Psychological History: No Psychological Hx Reported Smoking Status: Never smoker Past Alcohol Use History: Occasional Past Drug Use History: Marijuana - Past Family History Mother Family Medical History: No Reported History General Exam Limitations: no limitations General appearance: alert, in no apparent distress Head exam: Present: atraumatic, normocephalic Eye exam: Present: normal appearance, PERRL, EOMI. Absent: scleral icterus ENT exam: Present: normal oropharynx Neck exam: Present: normal inspection, full ROM. Absent: tenderness Respiratory exam: Present: normal lung sounds bilaterally. Absent: respiratory distress, wheezes, rales, rhonchi, stridor Cardiovascular Exam: Present: regular rate, normal rhythm, normal heart sounds. Absent: systolic murmur, diastolic murmur, rubs, gallop GI/Abdominal exam: Present: soft. Absent: distended, tenderness, guarding, rebound, mass Extremities exam: Present: normal inspection, normal capillary refill. Absent: pedal edema, calf tenderness Back exam: Present: CVA tenderness (R). Absent: CVA tenderness (L) Neurological exam: Present: alert Course Vital Signs 02/28/18 21:14 Temperature 97.6 F Pulse Rate 56 L Respiratory 20 Rate Blood Pressure 122/82 O2 Sat by Pulse 100 Oximetry Medical Decision Making - Lab Data Result diagrams: 02/28/18 21:44 02/28/18 21:44 Lab Results 02/28/18 02/28/18 02/28/18 Range/Units 21:44 21:44 21:44 WBC 8.5 (3.8-10.6) k/uL RBC 4.53 (3.80-5.40) m/uL Hgb 14.9 (11.4-16.0) gm/dL Hct 44.5 (34.0-46.0) % MCV 98.2 (80.0-100.0) fL MCH 32.9 (25.0-35.0) pg MCHC 33.5 (31.0-37.0) g/dL RDW 12.8 (11.5-15.5) % Plt Count 236 (150-450) k/uL Neutrophils % 54 % Lymphocytes % 35 % Monocytes % 5 % Eosinophils % 4 % Basophils % 1 % Neutrophils # 4.5 (1.3-7.7) k/uL Lymphocytes # 2.9 (1.0-4.8) k/uL Monocytes # 0.4 (0-1.0) k/uL Eosinophils # 0.3 (0-0.7) k/uL Basophils # 0.1 (0-0.2) k/uL Sodium 139 (137-145) mmol/L Potassium 3.9 (3.5-5.1) mmol/L Chloride 106 (98-107) mmol/L Carbon Dioxide 26 (22-30) mmol/L Anion Gap 7 mmol/L BUN 14 (7-17) mg/dL Creatinine 0.68 (0.52-1.04) mg/dL Est GFR (CKD-EPI)AfAm >90 (>60 ml/min/1.73 sqM) Est GFR (CKD-EPI)NonAf >90 (>60 ml/min/1.73 sqM) Glucose 104 H (74-99) mg/dL Calcium 9.4 (8.4-10.2) mg/dL Total Bilirubin 0.7 (0.2-1.3) mg/dL AST 18 (14-36) U/L ALT 22 (9-52) U/L Alkaline Phosphatase 58 (38-126) U/L Total Protein 7.0 (6.3-8.2) g/dL Albumin 4.4 (3.5-5.0) g/dL Amylase 61 (30-110) U/L Lipase 148 (23-300) U/L Urine Color Urine Appearance (Clear) Urine pH (5.0-8.0) Ur Specific [place] (1.001-1.035) Urine Protein (Negative) Urine Glucose (UA) (Negative) Urine Ketones (Negative) Urine Blood (Negative) Urine Nitrite (Negative) Urine Bilirubin (Negative) Urine Urobilinogen (<2.0) mg/dL Ur Leukocyte Esterase (Negative) Urine HCG, Qual Not Detected (Not Detectd) 02/28/18 Range/Units 21:44 WBC (3.8-10.6) k/uL RBC (3.80-5.40) m/uL Hgb (11.4-16.0) gm/dL Hct (34.0-46.0) % MCV (80.0-100.0) fL MCH (25.0-35.0) pg MCHC (31.0-37.0) g/dL RDW (11.5-15.5) % Plt Count (150-450) k/uL Neutrophils % % Lymphocytes % % Monocytes % % Eosinophils % % Basophils % % Neutrophils # (1.3-7.7) k/uL Lymphocytes # (1.0-4.8) k/uL Monocytes # (0-1.0) k/uL Eosinophils # (0-0.7) k/uL Basophils # (0-0.2) k/uL Sodium (137-145) mmol/L Potassium (3.5-5.1) mmol/L Chloride (98-107) mmol/L Carbon Dioxide (22-30) mmol/L Anion Gap mmol/L BUN (7-17) mg/dL Creatinine (0.52-1.04) mg/dL Est GFR (CKD-EPI)AfAm (>60 ml/min/1.73 sqM) Est GFR (CKD-EPI)NonAf (>60 ml/min/1.73 sqM) Glucose (74-99) mg/dL Calcium (8.4-10.2) mg/dL Total Bilirubin (0.2-1.3) mg/dL AST (14-36) U/L ALT (9-52) U/L Alkaline Phosphatase (38-126) U/L Total Protein (6.3-8.2) g/dL Albumin (3.5-5.0) g/dL Amylase (30-110) U/L Lipase (23-300) U/L Urine Color Yellow Urine Appearance Clear (Clear) Urine pH 5.5 (5.0-8.0) Ur Specific [place] 1.034 (1.001-1.035) Urine Protein Trace H (Negative) Urine Glucose (UA) Negative (Negative) Urine Ketones Negative (Negative) Urine Blood Negative (Negative) Urine Nitrite Negative (Negative) Urine Bilirubin Negative (Negative) Urine Urobilinogen 2.0 (<2.0) mg/dL Ur Leukocyte Esterase Negative (Negative) Urine HCG, Qual (Not Detectd) Disposition Clinical Impression: Gastroenteritis Disposition: HOME SELF-CARE Condition: Fair Instructions: Gastroenteritis (ED) Prescriptions: Ciprofloxacin HCl [Cipro] 500 mg PO Q12HR #14 tablet Famotidine [Pepcid] 20 mg PO BID #14 tablet metroNIDAZOLE [Flagyl] 500 mg PO TID #21 tab Ondansetron Odt [Zofran ODT] 4 mg PO Q8HR PRN #10 tab PRN Reason: Nausea Is patient prescribed a controlled substance at d/c from ED?: No Referrals: Mae Colón DO [Primary Care Provider] - 1-2 days
--- NOTE | 2018-02-28 23:08 | CT ---
EXAMINATION TYPE: CT abdomen pelvis wo con DATE OF EXAM: 02/28/2018 COMPARISON: None HISTORY: Left side flank pain. CT DLP: 620.2 mGycm Automated exposure control for dose reduction was used. TECHNIQUE: Helical acquisition of images was performed from the lung bases through the pelvis. FINDINGS: There is hiatal hernia. There are clips from bariatric surgery. Heart size is normal. There is no ple ural effusion. Lung bases are clear. Liver spleen pancreas gallbladder appear normal. Bile ducts are not dilated. There is no adrenal mass . Kidneys have normal size and contour. There is no hydronephrosis. There are calcifications in the u pper lower pole the right kidney that measure up to 4 mm. There is no hydronephrosis. There is no ret roperitoneal adenopathy. The bladder distends smoothly. There is no inguinal hernia. There is no free fluid in the pelvis. Marshall sukhjinder is anteverted. There are a few loops of proximal small bowel with wall thickening. The wall measu res more than 10 mm. There is no ascites. There is no mesenteric edema. There is no evidence of free air. The appendix appears normal. Lumbar vertebra have normal spacing and alignment. There is minor s pur formation in the lumbar spine. The bony pelvis appears intact. IMPRESSION: NONOBSTRUCTING RIGHT RENAL CALCULI. MILD WALL THICKENING OF LOOPS OF PROXIMAL JEJUNUM COULD RELATE TO GASTROENTERITIS.
[2018-03-01] MEDS ORDERED: LEVOFLOXACIN 500 MG TAB PO STA (00:21)
[2018-03-01] MEDS ORDERED: metroNIDAZOLE 500 MG TAB PO STA (00:21)
[2018-03-01 02:08] VITALS: BP 139/80; PULSE 50; RESP 18
== END 2018-03-01 02:06 | disposition home or self-care (01) ==
LOC: EC 21:10
DX: K52.9 Noninfective gastroenteritis and colitis, unspecified (principal); K21.9 Gastro-esophageal reflux disease without esophagitis; I10 Essential (primary) hypertension; Z87.442 Personal history of urinary calculi; Z98.84 Bariatric surgery status; Z98.890 Other specified postprocedural states; Z79.1 Long term (current) use of non-steroidal anti-inflammatories (NSAID); Z79.899 Other long term (current) drug therapy; Z88.5 Allergy status to narcotic agent; Z91.048 Other nonmedicinal substance allergy status
CPT/HCPCS: 36415; 80053; 82150; 83690; 85025; 81003; 81025; 74018; 74176; 99284; 96374; 96375; J2270; J1885

== ENCOUNTER → 2018-04-24 | Outpatient (CLI) | payer BC ==
[2018-04-24 13:08] VITALS: BP 123/82; PULSE 69; TEMP 97.8; BMI 28.6
--- NOTE | 2018-04-24 14:32 | P.BASOAP ---
Subjective Progress Note Date: 04/24/18 Principal diagnosis: Morbid obesity Patient returns today for follow-up visit. Doing well at this time. Last seen in November last year. Taking her antiacids every other day at this time. Exercising 4 times per week. She has had good stability with her weight since her last visit. She is due for one year labs at this time. Objective - Vital Signs Vital signs: Vital Signs Temp 97.8 F 04/24/18 13:01 Pulse 69 04/24/18 13:01 Resp BP 123/82 04/24/18 13:01 Pulse Ox Intake & Output 04/23/18 04/24/18 04/24/18 18:59 06:59 18:59 Weight 78.018 kg - Exam Abdomen: Soft, nontender, nondistended Assessment/Plan (1) Morbid obesity Narrative/Plan: We'll check one year labs at this time. Continue dietary and exercise regimen Follow-up visit in 3-6 months. Plan: Date: 04/24/18 Initial Weight: 108.635 kg Initial BMI: 39.8 Current Weight: 78.018 kg Current BMI: 28.6 Type of Surgery: Total Volume in Band: Previous Volume: Volume Removed: Volume Added: Band Size:
[2018-04-24 14:33] LABS: HCT 44.7 % (34.0-46.0); MCH 33.3 pg (25.0-35.0); MCHC 33.5 g/dL (31.0-37.0); MCV 99.5 fL (80.0-100.0); Mean Platelet Volume 6.7; Platelet Count 236 k/uL (150-450); RBC 4.49 m/uL (3.80-5.40); RDW 12.7 % (11.5-15.5); WBC 6.2 k/uL (3.8-10.6)
[2018-04-24 19:36] LABS: Albumin 4.4 g/dL (3.80-4.90); Albumin/Globulin Ratio 2.2 (1.60-3.17); Anion Gap 6.2 mmol/L (4.00-12.00); Calcium 9.4 mg/dL (8.7-10.3); Carbon Dioxide 28.8 mmol/L (21.6-31.8); Potassium 3.9 mmol/L (3.5-5.5); Total Bilirubin 0.6 mg/dL (0.2-1.2); Total Protein 6.4 g/dL (6.2-8.2)
[2018-04-24 19:46] LABS: Vitamin D 25 Hydroxy 51.8 ng/mL (30.0-100.0)
[2018-04-24 20:06] LABS: Folate, Serum >24.0 ng/mL
== END ==
LOC: BARWHC3 12:47
PROVIDERS: ATTEND Surgery
DX: E66.01 Morbid (severe) obesity due to excess calories (principal); K90.89 Other intestinal malabsorption; E55.9 Vitamin D deficiency, unspecified; Z68.28 Body mass index [BMI] 28.0-28.9, adult
CPT/HCPCS: 36415; 80053; 82306; 82607; 82746; 83540; 84425; 85027; 99211

== ENCOUNTER → 2018-06-29 | Outpatient (CLI) | payer BC ==
--- NOTE | 2018-07-03 14:10 | MM ---
Reason for exam: screening (asymptomatic). Last mammogram was performed 1 year and 3 months ago. History: Benign US biopsy breast VAD RT of the right breast, November 06, 2015. Physical Findings: A clinical breast exam by your physician is recommended on an annual basis and results should be correlated with mammographic findings. MG 3D Screening Mammo W/Cad Bilateral CC and MLO view(s) were taken. Prior study comparison: April 04, 2017, bilateral MG 3d screening mammo w/cad. November 06, 2015, right breast MG diagnostic mammo RT wo CAD. The breast tissue is heterogeneously dense. This may lower the sensitivity of mammography. Previous mammotome biopsy in the right breast. ASSESSMENT: Benign, BI-RAD 2 RECOMMENDATION: Routine screening mammogram of both breasts in 1 year.
== END | disposition home or self-care (01) ==
LOC: RADMAMWWP 10:00
PROVIDERS: ATTEND Family Medicine
DX: Z12.31 Encounter for screening mammogram for malignant neoplasm of breast (principal)
CPT/HCPCS: 77063; 77067

== ENCOUNTER 2019-02-14 21:59 | Emergency (ER) | payer BC ==
[2019-02-14 22:07] VITALS: TEMP 98.1
[2019-02-14] MEDS ORDERED: MORPHINE SULFATE 4 MG/ML SYRINGE IVP STA (23:53)
--- NOTE | 2019-02-15 00:39 | CT ---
EXAMINATION TYPE: CT chest wo con DATE OF EXAM: 02/15/2019 COMPARISON: None HISTORY: Chest pain. Fall. Left rib pain CT DLP: 379.4 mGycm Automated exposure control for dose reduction was used. Multiple axial sections were obtained from the thoracic inlet to the diaphragm with no contrast. The lungs are clear of consolidation. There is mild subsegmental atelectasis at the lung bases. Heart size is normal. There is no pericardial effusion. There is hiatal hernia. There is gastric surgery n oted. There is no pleural effusion. There are no hilar masses. There is no mediastinal adenopathy. Th ere is no pneumothorax. Thoracic spine is intact. There is no compression fracture. There are fractures of the anterior later al left fourth and fifth ribs with mild displacement 50%. The left shoulder appears intact. IMPRESSION: Acute left lateral upper rib fractures. Minimal subsegmental atelectasis. No pneumothorax or pleural fluid.
[2019-02-15] MEDS ORDERED: MORPHINE SULFATE 4 MG/ML SYRINGE IM STA (01:23)
--- NOTE | 2019-02-15 01:23 | ED ---
General Adult HPI - General Chief complaint: Abdominal Pain Stated complaint: Fall Lft Rib Pain Time Seen by Provider: 02/14/19 22:00 Source: patient, family Mode of arrival: ambulatory Limitations: no limitations - History of Present Illness Initial comments: The patient is a 49-year-old female with past history of hypertension who presents emergency room with reported left chest wall pain. She states that she was at home dancing in her socks when she lost her footing and fell against the couch. She struck her left side and instantly had pain. She felt associated shortness of breath. She'll take any medications for her symptoms but came immediately into the emergency room for evaluation. States that she has pleuritic chest pain. Denies any head trauma or loss of consciousness. No neck or back pain. Denies any numbness or tingling in her extremities. Has abdominal pain. No nausea or vomiting. There are no alleviating, precipitating or modifying factors - Related Data Home Medications Medication Instructions Recorded Confirmed Metoprolol Succinate [Toprol XL] 75 mg PO DAILY 06/03/16 04/24/18 Cholecalciferol [Vitamin D3] 2,000 unit PO DAILY 02/28/18 04/24/18 Ibuprofen [Motrin Ib] 600 mg PO ONCE 02/28/18 04/24/18 Previous Rx's Medication Instructions Recorded Ondansetron Odt [Zofran ODT] 4 mg PO Q8HR PRN #10 tab 03/01/18 Hydrocodone/Acetaminophen [[place] 1 tab PO Q6HR PRN #12 tab 02/15/19 5-325] Allergies Allergy/AdvReac Type Severity Reaction Status Date / Time adhesive tape Allergy BLISTERS Verified 02/14/19 22:07 codeine Allergy Anaphylaxis Verified 02/14/19 22:07 Review of Systems ROS Statement: Those systems with pertinent positive or pertinent negative responses have been documented in the HPI. ROS Other: All systems not noted in ROS Statement are negative. Past Medical History Past Medical History: GERD/Reflux, Hypertension, Skin Disorder Additional Past Medical History / Comment(s): Kidney stones. FATTY CYST LT UPPER ARM. History of Any Multi-Drug Resistant Organisms: None Reported Past Surgical History: Bariatric Surgery, Ear Surgery, Tonsillectomy, Uterine Ablation Additional Past Surgical History / Comment(s): EAR SURG X3. EGD. GASTRIC SLEEVE 01/2017. Past Anesthesia/Blood Transfusion Reactions: No Reported Reaction, Motion Sickness Past Psychological History: No Psychological Hx Reported Smoking Status: Never smoker Past Alcohol Use History: Occasional Past Drug Use History: Marijuana - Past Family History Mother Family Medical History: No Reported History General Exam Limitations: no limitations General appearance: alert, in no apparent distress Head exam: Present: atraumatic, normocephalic, normal inspection Eye exam: Present: normal appearance, PERRL, EOMI. Absent: scleral icterus, conjunctival injection, periorbital swelling ENT exam: Present: normal exam, mucous membranes moist Neck exam: Present: normal inspection. Absent: tenderness, meningismus, lymphadenopathy Respiratory exam: Present: normal lung sounds bilaterally, chest wall tenderness (left anterior-lateral ribs, t4-t8. No step offs appreciated). Absent: respiratory distress, wheezes, rales, rhonchi, stridor Cardiovascular Exam: Present: regular rate, normal rhythm, normal heart sounds. Absent: systolic murmur, diastolic murmur, rubs, gallop, clicks GI/Abdominal exam: Present: soft, normal bowel sounds. Absent: distended, tenderness, guarding, rebound, rigid Extremities exam: Present: normal inspection, full ROM, normal capillary refill. Absent: tenderness, pedal edema, joint swelling, calf tenderness Back exam: Present: normal inspection Neurological exam: Present: alert, oriented X3, CN II-XII intact Psychiatric exam: Present: normal affect, normal mood Skin exam: Present: warm, dry, intact, normal color. Absent: rash Course Vital Signs 02/14/19 02/15/19 22:03 01:33 Temperature 98.1 F 98.1 F Pulse Rate 88 81 Respiratory 20 19 Rate Blood Pressure 181/99 160/95 O2 Sat by Pulse 98 98 Oximetry EKG Findings - EKG Comments: EKG Findings:: EKG demonstrates normal sinus rhythm with a ventricular rate of 71. MA interval 140. QRS 80. QTC of 434. There is a Q wave with an inverted T-wave in lead 3. This is compared to patient's previous EKG and is the same. Medical Decision Making - Medical Decision Making Upon arrival the patient's placed into room 18. A thorough history of physical exam was performed. The patient is given 4 mg of morphine IM and for a CT of her chest without contrast. Does demonstrate acute left lateral upper rib fractures. Minimal subsegmental atelectasis. No pneumothorax, pulmonary contusion or pleural fluid. The patient is reevaluated does report improvement in her symptoms. I did perform a 12-lead EKG which demonstrated no acute findings. The patient is comfortable with discharge at this time. I will provide her with a prescription for [place]. She does sign and opiates or talking form. She is given a second dose of morphine prior to discharge and she will be unable to olive picker her prescriptions until tomorrow. I did instruct her on incentive spirometer use. States that she does have one at home. The patient has any new or worsening symptoms she should return to the emergency room. She was discharged home in stable condition Disposition Clinical Impression: Fall, Ribs, multiple fractures Disposition: HOME SELF-CARE Condition: Stable Instructions (If sedation given, give patient instructions): Rib Fracture (ED) Additional Instructions: Please follow up with the primary care doctor within 2-4 days for reevaluation. Use your incentive spirometer every hour. Return to the emergency room for any new or worsening symptoms Prescriptions: Hydrocodone/Acetaminophen [[place] 5-325] 1 tab PO Q6HR PRN #12 tab PRN Reason: Pain Is patient prescribed a controlled substance at d/c from ED?: Yes When asked, does pt state using other controlled substances?: No If prescribed controlled substance>3 days was MAPS reviewed?: Prescribed <3 Days If opioid is for acute pain is fill amount 7 days or less?: Yes If Rx opioid, was Start Talking consent form obtained?: Yes Referrals: Mae Colón DO [Primary Care Provider] - 1-2 days Time of Disposition: 01:27
[2019-02-15 01:34] VITALS: BP 160/95; PULSE 81; RESP 19
== END 2019-02-15 01:34 | disposition home or self-care (01) ==
LOC: EC 21:59
DX: S22.42XA Multiple fractures of ribs, left side, initial encounter for closed fracture (principal); J98.11 Atelectasis; I10 Essential (primary) hypertension; Z79.899 Other long term (current) drug therapy; Z88.5 Allergy status to narcotic agent; Z91.048 Other nonmedicinal substance allergy status; Z98.84 Bariatric surgery status; W18.09XA Striking against other object with subsequent fall, initial encounter
CPT/HCPCS: 99284 ×2; 96374 ×2; 96372 ×2; 93005; 71250; J2270

== ENCOUNTER → 2019-03-26 | Outpatient (CLI) | payer BC ==
[2019-03-26 14:56] VITALS: BP 169/88; PULSE 65; RESP 16; TEMP 97; BMI 28.6
--- NOTE | 2019-03-26 16:14 | P.BASOAP ---
Subjective Progress Note Date: 03/26/19 Principal diagnosis: Morbid obesity Patient returns for follow-up. Last seen in April of last year. She is a little over 2 years postop. Doing quite well. Maintained her weight at 172. No nausea or vomiting. No dysphagia. No night cough. Takes her antiacids 2 times per week. She is due for annual labs. Slight increased alcohol use recently. Still taking her protein shake for breakfast. Objective - Vital Signs Vital signs: Vital Signs Temp 97 F L 03/26/19 14:42 Pulse 65 03/26/19 14:42 Resp 16 03/26/19 14:42 BP 169/88 03/26/19 14:42 Pulse Ox Intake & Output 03/25/19 03/26/19 03/26/19 18:59 06:59 18:59 Weight 78.018 kg - Exam Abdomen: Soft, nontender, nondistended Assessment/Plan (1) Morbid obesity Narrative/Plan: Patient doing well at this time. Continue dietary and exercise regimen. Check annual labs. Continue antiacids sparingly. Follow-up 12 months. Plan: Date: 03/26/19 Initial Weight: 108.635 kg Initial BMI: 39.8 Current Weight: 78.018 kg Current BMI: 28.6 Type of Surgery: Total Volume in Band: Previous Volume: Volume Removed: Volume Added: Band Size:
== END | disposition home or self-care (01) ==
LOC: BARWHC3 13:54
PROVIDERS: ATTEND Surgery
DX: E66.01 Morbid (severe) obesity due to excess calories (principal); Z68.28 Body mass index [BMI] 28.0-28.9, adult
CPT/HCPCS: 99211

== ENCOUNTER → 2019-03-29 | Outpatient (CLI) | payer BC ==
[2019-03-29 10:44] LABS: HCT 41.3 % (34.0-46.0); HGB 13.9 gm/dL (11.4-16.0); MCH 33.5 pg (25.0-35.0); MCHC 33.7 g/dL (31.0-37.0); MCV 99.4 fL (80.0-100.0); Mean Platelet Volume 8.1; Platelet Count 197 k/uL (150-450); RBC 4.16 m/uL (3.80-5.40); WBC 4.5 k/uL (3.8-10.6)
[2019-03-29 16:51] LABS: African American GFR (CKD) 123.2 (60.0-200.0); Albumin 4.3 g/dL (3.80-4.90); Albumin/Globulin Ratio 2.26 (1.60-3.17); Anion Gap 4.8 mmol/L (4.00-12.00); BUN/Creat Ratio 18.33 Ratio (12.00-20.00); Calcium 9.4 mg/dL (8.7-10.3); Carbon Dioxide 29.2 mmol/L (21.6-31.8); Globulin 1.9 g/dL (1.6-3.3); Non-African American GFR(CKD) 106.3 (60.0-200.0); Potassium 4.1 mmol/L (3.5-5.5); Total Bilirubin 1.1 mg/dL (0.2-1.2); Total Protein 6.2 g/dL (6.2-8.2)
[2019-03-29 17:23] LABS: Folate, Serum 14.9 ng/mL
== END | disposition home or self-care (01) ==
LOC: LABWHC1 10:03
PROVIDERS: ATTEND Surgery
DX: E66.01 Morbid (severe) obesity due to excess calories (principal); K90.89 Other intestinal malabsorption; E55.9 Vitamin D deficiency, unspecified
CPT/HCPCS: 36415; 80053; 82306; 82607; 82746; 83540; 84425; 85027

== ENCOUNTER → 2019-08-13 | Day surgery (SDC) | payer BC ==
[2019-08-08 13:23] VITALS: BMI 28.3
[~2019-08-13] MED LIST changes: -BUPIVACAINE (PF) 0.5% 30 ML VIAL SQ ONE; -DEXAMETHASONE SOD PHOSPHATE 10 MG/ML 1 ML VIAL IV ONE; -HYDROcodone/APAP 5-325MG 1 EACH TAB PO PRN; -HYDROmorphone 0.5 MG/0.5 ML SYRINGE IVP PRN; -KETAMINE 10 MG/ML 20 ML VIAL ONE; +LIDOCAINE 1% (10MG/ML) FOR IV START INTRADERMA ONE; -LIDOCAINE 1% 20 ML VIAL (10MG/ML) FOR IV START INTRADERMA ONE; -LIDOCAINE 1% INJ 10MG/ML (20 ML MDV) ONE; -MIDAZOLAM 2 MG/2 ML VIAL ONE; -NALOXONE 0.4 MG/ML 1 ML VIAL IV PRN; -ONDANSETRON 4 MG/2 ML VIAL IVP ONE; -Pre Op ABX Message 1 EACH MISC MISCELLANE ONE; -fentaNYL (PF) 50 MCG/ML 2 ML AMP ONE
[2019-08-13 08:06] VITALS: RESP 16; TEMP 98
--- NOTE | 2019-08-13 08:32 | P.GSHP ---
History of Present Illness H&P Date: 08/13/19 Chief Complaint: Colon cancer screening Patient here today for colonoscopy. She has not had 1 previously. No bowel complaints. No family history of colon cancer. Past Medical History Past Medical History: GERD/Reflux, Hearing Disorder / Deafness, Hypertension, Osteoarthritis (OA) Additional Past Medical History / Comment(s): Kidney stones. FATTY CYST LT UPPER ARM. History of Any Multi-Drug Resistant Organisms: None Reported Past Surgical History: Bariatric Surgery, Ear Surgery, Tonsillectomy, Uterine Ablation Additional Past Surgical History / Comment(s): EAR SURG X3. EGD. GASTRIC SLEEVE 01/2017. Past Anesthesia/Blood Transfusion Reactions: No Reported Reaction, Motion Sickness Smoking Status: Never smoker - Past Family History Mother Family Medical History: No Reported History Medications and Allergies Home Medications Medication Instructions Recorded Confirmed Type Metoprolol Succinate [Toprol XL] 75 mg PO DAILY 06/03/16 08/13/19 History Omeprazole Magnesium [PriLOSEC OTC] 20 mg PO Q48H 08/08/19 08/13/19 History Allergies Allergy/AdvReac Type Severity Reaction Status Date / Time adhesive tape Allergy BLISTERS Verified 08/08/19 13:00 Surgical - Exam Vital Signs Temp Pulse Resp BP Pulse Ox 98.0 F 59 L 16 174/86 97 08/13/19 08:04 08/13/19 08:04 08/13/19 08:04 08/13/19 08:04 08/13/19 08:04 Physical exam: General: Well-developed, well-nourished HEENT: Normocephalic, sclerae nonicteric Abdomen: Nontender, nondistended Extremities: No edema Neuro: Alert and oriented Assessment and Plan (1) Colon cancer screening Narrative/Plan: Will proceed with colonoscopy at this time. Current Visit: Yes Status: Acute Code(s): Z12.11 - ENCOUNTER FOR SCREENING FOR MALIGNANT NEOPLASM OF COLON SNOMED Code(s): 125279012
--- NOTE | 2019-08-13 08:41 | P.PCN ---
Date of Procedure: 08/13/19 Procedure(s) Performed: PREOPERATIVE DIAGNOSIS: Colon cancer screening POSTOPERATIVE DIAGNOSIS: Normal PROCEDURE: Colonoscopy ANESTHESIA: MAC SURGEON: Mehran Angel M.D. SPECIMENS: None ENDOSCOPIC PROCEDURE: The patient was placed on the endoscopy table in the left decubitus position. The Olympus colonoscope was inserted into the anus and passed under direct visualization to the base of the cecum. The appendiceal orifice was visualized. From that point the scope was slowly withdrawn inspecting all surfaces carefully. There were no neoplastic inflammatory or polypoid lesions throughout the cecum, ascending, transverse, descending, sigmoid and rectum. There was no visible diverticulosis noted. Digital rectal examination was normal. The patient was taken to the recovery room in stable condition per anesthesia guidelines. RECOMMENDATIONS: Increase fiber. Follow-up colonoscopy in 10 years.
[2019-08-13 08:50] VITALS: BP 120/81
[2019-08-13 09:01] VITALS: PULSE 65
== END ==
LOC: ORWHC2ENDO 07:27
PROVIDERS: ATTEND Surgery
DX: Z12.11 Encounter for screening for malignant neoplasm of colon (principal); I10 Essential (primary) hypertension; K21.9 Gastro-esophageal reflux disease without esophagitis; M19.90 Unspecified osteoarthritis, unspecified site; H91.90 Unspecified hearing loss, unspecified ear; Z98.84 Bariatric surgery status; Z79.899 Other long term (current) drug therapy; Z87.442 Personal history of urinary calculi; Z90.89 Acquired absence of other organs; Z98.890 Other specified postprocedural states; Z91.048 Other nonmedicinal substance allergy status
CPT/HCPCS: 81025; G0121; J2704; 45378

== ENCOUNTER → 2020-02-18 | Outpatient (CLI) | payer BC ==
--- NOTE | 2020-02-19 14:58 | MM ---
Reason for exam: screening (asymptomatic). Last mammogram was performed 1 year and 8 months ago. History: Benign US biopsy breast VAD RT of the right breast, November 06, 2015. Physical Findings: A clinical breast exam by your physician is recommended on an annual basis and results should be correlated with mammographic findings. MG 3D Screening Mammo W/Cad Bilateral CC and MLO view(s) were taken. Prior study comparison: June 29, 2018, bilateral MG 3d screening mammo w/cad. April 04, 2017, bilateral MG 3d screening mammo w/cad. The breast tissue is heterogeneously dense. This may lower the sensitivity of mammography. There are benign appearing vascular calcifications bilaterally. Previous mammotome biopsy in the right breast. There is no discrete abnormality. ASSESSMENT: Benign, BI-RAD 2 RECOMMENDATION: Routine screening mammogram of both breasts in 1 year.
== END | disposition home or self-care (01) ==
LOC: RADMAMWWP 14:49
PROVIDERS: ATTEND Obstetrics & Gynecology
DX: Z12.31 Encounter for screening mammogram for malignant neoplasm of breast (principal)
CPT/HCPCS: 77063; 77067

== ENCOUNTER → 2020-07-29 | Outpatient (CLI) | payer BC ==
--- NOTE | 2020-07-29 22:50 | MR ---
EXAMINATION TYPE: MR shoulder RT wo con DATE OF EXAM: 07/29/2020 COMPARISON: Plain film 07/10/2020 HISTORY: Constant Rt shoulder pain TECHNIQUE: Multiplanar, multisequence imaging of the right shoulder is performed without contrast. FINDINGS: Rotator Cuff: Partial full-thickness rotator cuff tear is present, supraspinatus tendon shows retract ion to the level of the acromion, infraspinatus tendon is intact. Acromioclavicular Joint: There is a distal acromial spur, hypertrophic changes at the acromioclavicul ar joint, arthropathy causes mass effect on the musculotendinous junction of supraspinatus. Glenohumeral Joint: There is arthropathy change, marginal spurring, joint space loss Labrum: The labrum appears grossly intact given limitation of non-arthrogram study. Biceps Tendon: Long head of biceps tendon is not seen in its expected location, there is fluid signal present along the expected location and distribution. Bone marrow signal: Some pseudocyst formation present in the humeral head Other: There is a joint effusion present, fluid is present along the subscapularis musculotendinous j unction, in the subacromial subdeltoid bursa and displacing somewhat the infraspinatus tendon and ter es minor musculotendinous junction IMPRESSION: Partial full-thickness tear the rotator cuff. Osteoarthritis. Correlate for impingement. Long head of biceps tendon not seen and additional findings above.
== END | disposition home or self-care (01) ==
LOC: RADMRIMAIN 16:56
PROVIDERS: ATTEND Orthopaedic Surgery
DX: M75.121 Complete rotator cuff tear or rupture of right shoulder, not specified as traumatic (principal); M19.011 Primary osteoarthritis, right shoulder

== ENCOUNTER → 2020-09-07 | Outpatient (CLI) | payer BC ==
[2020-09-07 11:06] LABS: Basophils % (A) 1 %; Eosinophils # (A) 0.2 k/uL (0-0.7); Eosinophils % (A) 4 %; HCT 43.3 % (34.0-46.0); HGB 14.3 gm/dL (11.4-16.0); Lymphocytes # (A) 1.3 k/uL (1.0-4.8); Lymphocytes % (A) 33 %; MCH 32.7 pg (25.0-35.0); MCV 99.2 fL (80.0-100.0); Mean Platelet Volume 7.7; Monocytes # (A) 0.3 k/uL (0-1.0); Monocytes % (A) 7 %; Neutrophils # (A) 2.1 k/uL (1.3-7.7); Neutrophils % (A) 54 %; Platelet Count 219 k/uL (150-450); RBC 4.37 m/uL (3.80-5.40); RDW 12.1 % (11.5-15.5)
[2020-09-07 11:16] LABS: Potassium 4.2 mmol/L (3.5-5.1)
== END | disposition home or self-care (01) ==
LOC: LABPAT 10:31
PROVIDERS: ATTEND Orthopaedic Surgery
DX: Z01.818 Encounter for other preprocedural examination (principal); M75.41 Impingement syndrome of right shoulder
CPT/HCPCS: 36415; 80051; 85025; 93005

== ENCOUNTER 2020-09-24 07:41 | Day surgery (SDC) | payer BC ==
[2020-09-21 11:26] VITALS: BMI 28.3
--- NOTE | 2020-09-24 01:13 | HP ---
HISTORY AND PHYSICAL REASON FOR ADMISSION: Surgery scheduled for 09/24/2020 HISTORY OF PRESENT ILLNESS: Vinicius Vera is a 50-year-old patient seen with progressive right shoulder pain. We discussed options for treatment. She elected to proceed with arthroscopy. Consent was obtained. PAST MEDICAL HISTORY: Hypertension. PAST SURGICAL HISTORY: Noncontributory. MEDICATIONS: Metoprolol, Aleve. ALLERGIES: CODEINE. SOCIAL HISTORY: She denies tobacco use. PHYSICAL EXAMINATION: Evaluation of the right shoulder flexion 130, abduction 110, external rotation 35, tenderness along the anterolateral acromion rotator cuff insertion site. Positive impingement sign at 100 degrees. Drop-arm sign is positive. Distal neurovascular exam is intact. RADIOGRAPHS: Previous radiographs of right shoulder revealed a type 2 acromion, acromioclavicular joint osteoarthritis and cystic changes of the tuberosity. Right shoulder MRI revealed retracted rotator cuff tendon tear, acromioclavicular joint osteoarthritis. IMPRESSION: 1. Right shoulder impingement with rotator cuff tear. 2. Right shoulder acromioclavicular joint osteoarthritis. 3. History of right shoulder long head biceps tendon rupture. 4. Hypertension. PLAN: Right shoulder arthroscopy with subacromial decompression, arthroscopic rotator cuff repair, Nay procedure and debridement. Surgery scheduled 09/24/2020. MMODL / IJN: [id number] /
[2020-09-24] MEDS ORDERED: ONDANSETRON 4 MG/2 ML VIAL ONE (08:04)
[2020-09-24] MEDS ORDERED: LACTATED RINGERS 1,000 ML IV ONE (08:15)
[2020-09-24] MEDS ORDERED: LIDOCAINE 1% (10MG/ML) FOR IV START INTRADERMA ONE (08:15)
[2020-09-24] MEDS ORDERED: ONDANSETRON 4 MG/2 ML VIAL IVP ONE (08:16)
[2020-09-24] MEDS ORDERED: DEXAMETHASONE SOD PHOSPHATE 4 MG/ML 1 ML VIAL IVP ONE (08:16)
[2020-09-24] MEDS ORDERED: MIDAZOLAM 2 MG/2 ML VIAL IVP ONE (08:32)
[2020-09-24] MEDS ORDERED: SCOPOLAMINE 1.5MG/72HR PATCH TRANSDERM ONE (08:43)
--- NOTE | 2020-09-24 08:50 | P.ANPRN ---
Procedure Note - Anesthesia - Nerve Block Performed Right Interscalene Single Time Out Performed: Yes ([id number]) Date of Procedure: 09/24/20 Procedure Start Time: :32 Procedure Stop Time: :41 Location of Patient: PreOp Indication: Acute Post-Operative Pain, Dx/Pain Location (Right shoulder), Requested by Surgeon Specifically requested for management of pain by DrAubree: Rory Mckeon Sedation Type: Sedate with meaningful contact maintained Preparation: Sterile Prep Position: Supine Catheter: None Needle Types: Pajunk (2 inch) Needle Gauge: 20, 21 Ultrasound used to visualize needle placement: Yes Ultrasound used to observe medication spread: Yes Injectate: 0.5% Ropivacaine (see comment for volume) (30 cc and decadron 4 mg) Blood Aspirated: No Pain Paresthesia on Injection Noted: No Resistance on Injection: Normal Image Stored and Saved: Yes Events: Uneventful and Well Tolerated
[2020-09-24] MEDS ORDERED: DEXAMETHASONE SOD PHOSPHATE 4 MG/ML 1 ML VIAL ONE (08:58)
[2020-09-24] MEDS ORDERED: ePHEDrine SULFATE/0.9% NACL/PF 50 MG/5 ML SYRINGE IV ONE (08:58)
[2020-09-24] MEDS ORDERED: PROPOFOL 10 MG/ML 20 ML VIAL IV ONE (08:58)
[2020-09-24] MEDS ORDERED: diphenhydrAMINE 50 MG/ML 1 ML VIAL ONE (08:58)
[2020-09-24] MEDS ORDERED: LIDOCAINE 1% INJ 10MG/ML (20 ML MDV) ONE (08:58)
[2020-09-24] MEDS ORDERED: ROPIVACAINE 5 MG/ML 30 ML VIAL ONE (08:58)
--- NOTE | 2020-09-24 11:08 | P.OP ---
Date of Procedure: 09/24/20 Preoperative Diagnosis: Right shoulder impingement Postoperative Diagnosis: 1. Right shoulder rotator cuff tear 2. Right shoulder impingement 3. Right shoulder acromioclavicular joint osteoarthritis Procedure(s) Performed: 1. Right shoulder arthroscopic rotator cuff repair 2. Right shoulder arthroscopic subacromial decompression 3. Right shoulder arthroscopic Nay procedure Implants: 44.75 Arthrex swivel lock anchors Anesthesia: GETA, regional (Interscalene block) Surgeon: Rory Mckeon Time Clerk #1: Lowell Zavala Estimated Blood Loss (ml): 11 Pathology: none sent Condition: stable Disposition: PACU Indications for Procedure: 50-year-old patient seen with progressive right shoulder pain. After treatment options were discussed, she elected to proceed with arthroscopy. Operative Findings: See description of procedure Description of Procedure: Patient underwent an interscalene block by department of anesthesia. The patient was then taken to the operative suite. The patient underwent a general anesthetic by the department of anesthesia. The patient was placed into a lateral position and secured. There was appropriate padding of the bony prominence. Right shoulder was then prepped and draped in normal sterile orthopedic fashion. We placed the extremity in 10 pounds of longitudinal traction. A posterior incision was now made for a posterior working portal site. The trocar and cannula were inserted into the glenohumeral joint. Arthroscopy was initiated. Spinal needle was now inserted anteriorly, to ascertain the anterior working portal site. An incision was now made in that area, a trocar was inserted followed by a probe. There was a shredded remnant biceps stump. I introduced a motorized shaver and debrided that out. There were grade 1 chondromalacia changes of the anterior glenoid. Labrum was intact. At this point instruments removed from glenohumeral joint. Utilizing the posterior working portal site, the trocar and cannula were inserted into the subacromial space. Arthroscopy initiated. I made an incision 2 fingerbreadths lateral to the acromion. I introduced my trocar followed by my ArthroCare ablator. I now began ablating thick subacromial bursal tissue, which exposed the undersurface of the anterior acromion. There was diminished subacromial space. There was a very prominent anterior acromion. A motorized bur was introduced and a subacromial decompression was performed. I also excised some osteophytes off the inferior aspect of the distal clavicle. The AC joint was visualized and noted to be fairly arthritic. The motorized bur was introduced in the anterior portal site and a Nay procedure was performed without difficulty, decompressing the AC joint nicely. I turned my attention to the rotator cuff. There was a 3 cm rotator cuff tear. I debrided the margins getting down to stable tendon tissue. The tendon was freely mobile over the footprint. I introduced my motorized bur and abraded the footprint area, getting some petechial bleeding. I now made an accessory portal site off the lateral aspect of the acromion. I punched 2 holes medial for medial row fixation with the assistance of Rob BROCK carefully tapping the punch with a mallet as I held the punch and the camera. I now introduced both anchors into the pre- punched holes and Rob BROCK tapped them with the mallet as I held anchors and the camera. Rob BROCK now screwed the anchors in place a while I held the anchor guide and camera. All 8 limbs of suture were now passed through good bites of rotator cuff tendon. I now punched 2 holes for lateral row fixation again I held the punch and camera while Rob BROCK used a mallet to tap in the punch. We now passed sutures through both anchors and individually I introduced the anchors into the pre-punch holes I held the anchor guide in position with one hand holding the camera with the other hand while Rob BROCK tensioned the sutures and screwed in the anchors one at a time. All residual suture limbs were now clipped. We had good compression of the tendon along the entire footprint. Instruments now removed from the portal sites. All portal sites were approximated with nylon suture. Sterile dressings were applied followed by a shoulder immobilizer. Lowell BROCK assisted in this complex case. The patient was awakened, transferred to a bed, and taken to recovery in stable condition.
[2020-09-24 11:16] VITALS: TEMP 97
[2020-09-24 11:18] VITALS: RESP 16
[2020-09-24 12:06] VITALS: PULSE 62
[2020-09-24 12:21] VITALS: BP 142/83
== END 2020-09-24 12:40 | disposition home or self-care (01) ==
LOC: OR 07:41
PROVIDERS: ATTEND Orthopaedic Surgery
DX: M25.811 Other specified joint disorders, right shoulder (principal); M75.101 Unspecified rotator cuff tear or rupture of right shoulder, not specified as traumatic; M19.011 Primary osteoarthritis, right shoulder; I10 Essential (primary) hypertension; Z79.899 Other long term (current) drug therapy; Z88.5 Allergy status to narcotic agent
CPT/HCPCS: 29824; 29826; 64415; 76942; C1713 ×3; J2250; J1200; J1100; J0690; J2405; J2001; J2795; J2704

== ENCOUNTER 2020-10-14 08:23 | Emergency (ER) | payer BC ==
[2020-10-14 08:28] VITALS: BP 165/107; PULSE 86; RESP 18; TEMP 98.2
[2020-10-14] MEDS ORDERED: KETOROLAC 15 MG/ML 1 ML VIAL IM STA (08:34)
--- NOTE | 2020-10-14 08:38 | ED ---
General Adult HPI - General Chief complaint: Extremity Injury, Lower Stated complaint: ankle injury Time Seen by Provider: 10/14/20 08:25 Source: patient, RN notes reviewed, old records reviewed Mode of arrival: wheelchair Limitations: physical limitation - History of Present Illness Initial comments: This is a 50-year-old female who presents to the emergency department complaining of left ankle pain. Patient states she twisted it last night and she can weight-bear but it's very tender. Patient states the swelling on the lateral aspect of the ankle. Patient denies any posterior ankle pain. Patient denies any foot pain. Patient denies any knee pain. Patient denies any upper leg pain. Patient denies any other injury at this time. - Related Data Home Medications Medication Instructions Recorded Confirmed Metoprolol Succinate [Toprol XL] 50 mg PO DAILY 06/03/16 10/14/20 Black Cohosh-800mg 1,600 mg PO DAILY 09/21/20 10/14/20 HYDROcodone/APAP 7.5-325MG [[place] 1 tab PO Q6HR PRN 10/14/20 10/14/20 7.5] Metoprolol Succinate (ER) [Toprol 100 mg PO DAILY 10/14/20 10/14/20 Xl] Allergies Allergy/AdvReac Type Severity Reaction Status Date / Time adhesive tape Allergy BLISTERS Verified 10/14/20 09:43 latex Allergy Unknown Verified 10/14/20 09:43 Review of Systems ROS Statement: Those systems with pertinent positive or pertinent negative responses have been documented in the HPI. ROS Other: All systems not noted in ROS Statement are negative. Past Medical History Past Medical History: Hypertension Additional Past Medical History / Comment(s): Kidney stones. FATTY CYST LT UPPER ARM. History of Any Multi-Drug Resistant Organisms: None Reported Past Surgical History: Bariatric Surgery, Ear Surgery, Tonsillectomy, Uterine Ablation Additional Past Surgical History / Comment(s): EAR SURG X3. EGD. GASTRIC SLEEVE 01/2017, recent arm surgery 3 weeks ago Past Anesthesia/Blood Transfusion Reactions: No Reported Reaction, Motion Sickness Past Psychological History: No Psychological Hx Reported Smoking Status: Never smoker Past Alcohol Use History: Occasional Past Drug Use History: Marijuana - Past Family History Mother Family Medical History: No Reported History General Exam - General Exam Comments Initial Comments: GENERAL Patient is well-developed and well-nourished. Patient is in mild distress. EYES Patient's pupils are equal and round. Extraocular motion is intact SKIN Unremarkable NEURO The patient is alert and oriented 3 PYSCH Patient has normal interpersonal interactions. MUSCULOSKELETAL Patient's left ankle is tender laterally and medially and there is some signif icant swelling laterally. There is no tenderness to the foot no proximal leg tenderness no knee tenderness Limitations: physical limitation Course Vital Signs 10/14/20 08:24 Temperature 98.2 F Pulse Rate 86 Respiratory 18 Rate Blood Pressure 165/107 O2 Sat by Pulse 97 Oximetry Procedures - Orthopedic Splinting/Casting Injury #1 Side: left Lower Extremity Injury Location: short leg, ankle Medical Decision Making - Medical Decision Making X-ray showed questionable medial malleolus fracture possibly old. I splinted the patient patient will be nonweightbearing until she follows up with orthopedics Disposition Clinical Impression: Ankle fracture Disposition: HOME SELF-CARE Condition: Good Instructions (If sedation given, give patient instructions): Ankle Fracture (ED) Additional Instructions: Patient should be nonweightbearing Is patient prescribed a controlled substance at d/c from ED?: No Referrals: Mae Colón DO [Primary Care Provider] - 1-2 days Time of Disposition: 10:12
--- NOTE | 2020-10-14 09:40 | XR ---
Left ankle HISTORY: Trauma and pain 3 views of the left ankle There is soft tissue swelling present. Ossific density distal to the fibula appears well-corticated a nd is thought likely to be chronic. There are small ossific densities distal to the medial malleolus which are indeterminate, largest appears well-corticated. Alignment and joint space maintained. There is a plantar calcaneal spur. There is enthesophyte at insertion of the Achilles tendon. Spurring is present at the tibiotalar joint. IMPRESSION: Osteoarthritis. There is a plantar calcaneal spur. Findings felt likely to be due to the sequela of remote trauma, difficult to exclude a small chip fracture, avulsion injury at the medial m alleolus. Soft tissue swelling.
== END 2020-10-14 10:21 | disposition home or self-care (01) ==
LOC: EC 08:23
DX: S82.892A Other fracture of left lower leg, initial encounter for closed fracture (principal); I10 Essential (primary) hypertension; F12.90 Cannabis use, unspecified, uncomplicated; Z79.899 Other long term (current) drug therapy; X50.1XXA Overexertion from prolonged static or awkward postures, initial encounter
CPT/HCPCS: 73610; 99283; 96372; J1885

== ENCOUNTER → 2021-08-31 | Outpatient (CLI) | payer BC ==
--- NOTE | 2021-09-01 09:15 | MM ---
Reason for Exam: Screening (asymptomatic). Last mammogram was performed 1 year(s) and 6 month(s) ago. Patient History: Menarche at age 10. First Full-Term at age 20. Postmenopausal. 11/06/2015, Benign Core Biopsy on the right side. Risk Values: Laquita 5 year model risk: 1.2%. NCI Lifetime model risk: 10.0%. Prior Study Comparison: 04/04/2017 Bilateral Screening Mammogram, [facility]. 06/29/2018 Bilateral Screening Mammogram, [facility]. 02/18/2020 Bilateral Screening Mammogram, [facility]. Tissue Density: The breast tissue is heterogeneously dense. This may lower the sensitivity of mammography. Findings: Analyzed By CAD. There is no suspicious group of microcalcifications or new suspicious mass in either breast. Overall Assessment: Negative, BI-RAD 1 Management: Screening Mammogram of both breasts in 1 year. A clinical breast exam by your physician is recommended on an annual basis and results should be correlated with mammographic findings. Electronically signed and approved by: Moises Tobin M.D. Radiologis
== END | disposition home or self-care (01) ==
LOC: RADMAMWWP 08:57
PROVIDERS: ATTEND Obstetrics & Gynecology
DX: Z12.31 Encounter for screening mammogram for malignant neoplasm of breast (principal); Z78.0 Asymptomatic menopausal state
CPT/HCPCS: 77063; 77067

== ENCOUNTER → 2021-09-20 | Outpatient (CLI) | payer BC ==
--- NOTE | 2021-09-20 07:49 | BD ---
EXAMINATION TYPE: Axial Bone Density DATE OF EXAM: 09/20/2021 COMPARISON: NONE CLINICAL HISTORY: 51 year old Female. ICD-10 CODE: Z98.890 OTHER SPECIFIED POSTPROCEDURAL STATES Height: 65 Weight: 168.6 FRAX RISK QUESTIONS: Alcohol (3 or more units per day): no Family History (Parent hip fracture): no Glucocorticoids (More than 3mos): no (Ex: prednisone, prednisolone, methylprednisolone, dexamethasone, and hydrocortisone). History of Fracture in Adulthood: yes Secondary Osteoporosis: 1. Type 1 Diabetes: no 2. Hyperthyroidism: no 3. Menopause before 45: no 4. Malnutrition: no 5. Chronic liver disease: no Rheumatoid Arthritis: no Current Tobacco Use: no RISK FACTORS HISTORY OF: Surgery to Spine/Hip(right/left)/Wrist (right/left): no Family History of Osteoporosis: no Active: yes Diet low in dairy products/other sources of calcium: no Postmenopausal woman: yes Lost more than 2 inches in height since high school: no MEDICATIONS: Additional History: EXAM MEASUREMENTS: Bone mineral densitometry was performed using the Jott System. Bone mineral density as measured about the Lumbar spine is: ----- L1-L4(G/cm2): 1.143 T Score Values are as follows: ----- L1: -0.4 ----- L2: -0.6 ----- L3: -0.3 ----- L4: 0.0 ----- L1-L4: -0.3 Bone mineral density : baseline Bone mineral density about the R hip (g/cm2): 0.832 Bone mineral density about the L hip (g/cm2): 0.835 T Score values are as follows: -----R Neck: -1.5 -----L Neck: -1.5 -----R Total: -0.8 -----L Total: -0.6 Bone mineral density : baseline FRAX%s: The graph provided illustrates a 10.1% chance for a major osteoporotic fx and a 0.8% chance f or the hips probability for fx in 10 years time. IMPRESSION: Osteopenia (T Score between -2.5 and -1). There is slightly increased risk of fracture and the patient may be considered for treatment. Re-Screen 2-5 years. NOTE: T-SCORE=SD OF THE YOUNG ADULT MEAN.
== END | disposition home or self-care (01) ==
LOC: RADBDWWP 07:00
PROVIDERS: ATTEND Orthopaedic Surgery
DX: M85.89 Other specified disorders of bone density and structure, multiple sites (principal); Z98.890 Other specified postprocedural states
CPT/HCPCS: 77080

== ENCOUNTER → 2022-09-09 | Outpatient (CLI) | payer BC ==
--- NOTE | 2022-09-12 07:47 | MM ---
Reason for Exam: Screening (asymptomatic). Last screening mammogram was performed 12 month(s) ago. Patient History: Menarche at age 10. First Full-Term at age 20. Postmenopausal. 11/06/2015, Benign Core Biopsy on the right side. Risk Values: Laquita 5 year model risk: 1.3%. NCI Lifetime model risk: 9.8%. Prior Study Comparison: 06/29/2018 Bilateral Screening Mammogram, [facility]. 02/18/2020 Bilateral Screening Mammogram, [facility]. 08/31/2021 Bilateral MG 3D screening mammo w/cad, [facility]. Tissue Density: There are scattered fibroglandular densities. Findings: Analyzed By CAD. Right breast clips. There is no suspicious group of microcalcifications or new suspicious mass in either breast.Right breast clip. There is no suspicious group of microcalcifications or new suspicious mass in either breast. Overall Assessment: Negative, BI-RAD 1 Management: Screening Mammogram of both breasts in [address] [facility] will attempt to contact patient to return for supplemental views and ultrasound if indicated. Patient should continue monthly self-breast exams. A clinical breast exam by your physician is recommended on an annual basis. This exam should not preclude additional follow-up of suspicious palpable abnormalities. Note on Laquita scores and lifetime risk: 1. A Laquita score greater than 3% is considered moderate risk. If this is the case, consider specialist referral to assess eligibility for a risk reducing agent. 2. If overall lifetime risk for the development of breast cancer is 20% or higher, the patient may qualify for future screening with alternating mammogram and breast MRI. Electronically signed and approved by: Miguel Angel Coyle DO
== END | disposition home or self-care (01) ==
LOC: RADMAMWWP 08:09
PROVIDERS: ATTEND Internal Medicine Pulmonary Disease
DX: Z12.31 Encounter for screening mammogram for malignant neoplasm of breast (principal); Z78.0 Asymptomatic menopausal state
CPT/HCPCS: 77063; 77067

== ENCOUNTER → 2023-09-20 | Outpatient (CLI) | payer BC ==
--- NOTE | 2023-10-12 10:51 | MM ---
Reason for Exam: Screening (asymptomatic). Last mammogram was performed 1 year(s) and 1 month(s) ago. Patient History: Menarche at age 10. First Full-Term at age 20. Postmenopausal. 11/06/2015, Benign Core Biopsy on the right side. Risk Values: Laquita 5 year model risk: 1.3%. NCI Lifetime model risk: 9.6%. Prior Study Comparison: 02/18/2020 Bilateral Screening Mammogram, [facility]. 08/31/2021 Bilateral MG 3D screening mammo w/cad, [facility]. 09/09/2022 Bilateral MG 3D screening mammo w/cad, [facility]. Tissue Density: There are scattered areas of fibroglandular density. Findings: Analyzed By CAD. Right breast biopsy clip. Right breast: There is no suspicious group of microcalcifications or new suspicious mass. Left breast: There is no suspicious group of microcalcifications or new suspicious mass. Overall Assessment: Negative, BI-RAD 1 Management: Screening Mammogram of both breasts in [address] [facility] will attempt to contact patient to return for supplemental views and ultrasound if indicated. Patient should continue monthly self-breast exams. A clinical breast exam by your physician is recommended on an annual basis. This exam should not preclude additional follow-up of suspicious palpable abnormalities. Note on Laquita scores and lifetime risk: 1. A Laquita score greater than 3% is considered moderate risk. If this is the case, consider specialist referral to assess eligibility for a risk reducing agent. 2. If overall lifetime risk for the development of breast cancer is 20% or higher, the patient may qualify for future screening with alternating mammogram and breast MRI. Electronically signed and approved by: Miguel Angel Coyle DO
== END | disposition home or self-care (01) ==
LOC: RADMAMWWP 12:00
PROVIDERS: ATTEND Internal Medicine Pulmonary Disease
DX: Z12.31 Encounter for screening mammogram for malignant neoplasm of breast
CPT/HCPCS: 77063; 77067

== ENCOUNTER → 2024-03-11 | Outpatient (CLI) | payer BC ==
[2024-03-11 15:11] LABS: Basophils # (A) 0.06 X 10*3/uL (0.00-0.10); Basophils % (A) 1.1 %; Eosinophils # (A) 0.14 X 10*3/uL (0.04-0.35); Eosinophils % (A) 2.5 %; HGB 12.8 g/dL (12.0-15.0); Lymphocytes # (A) 1.54 X 10*3/uL (0.90-5.00); MCH 31.3 pg (27.0-32.0); MCV 97.8 FL (80.0-97.0); Mean Platelet Volume 10.6 FL (9.5-12.2); Monocytes # (A) 0.39 X 10*3/uL (0.20-1.00); Monocytes % (A) 6.8 %; NRBC Per 100 WBC 0 X 10*3/uL (0.00-0.01); Neutrophils # (A) 3.57 X 10*3/uL (1.80-7.70); Neutrophils % (A) 62.4 %; Platelet Count 244 X 10*3/uL (140-440); RBC 4.09 X 10*6/uL (4.10-5.20); RDW 13.9 % (11.5-14.5); WBC 5.71 X 10*3/uL (4.50-10.00)
[2024-03-11 16:13] LABS: ALT 27 U/L (8-44); AST 26 U/L (13-35); Albumin 4.3 g/dL (3.8-4.9); Albumin/Globulin Ratio 2.05 Ratio (1.60-3.17); Alkaline Phosphatase 101 U/L (41-126); Blood Urea Nitrogen 13.5 mg/dL (9.0-27.0); Calcium 9.4 mg/dL (8.7-10.3); Carbon Dioxide 25.1 mmol/L (21.6-31.8); Chloride 103 mmol/L (96-109); Chol/HDL Ratio 1.82 Ratio; Globulin 2.1 g/dL (1.6-3.3); Glucose 98 mg/dL (70-110); LDL Cholesterol,Calculated 54.3 mg/dL (0.0-131.0); Potassium 4.2 mmol/L (3.5-5.5); Sodium 139 mmol/L (135-145); Total Bilirubin 0.8 mg/dL (0.3-1.2); Total Protein 6.4 g/dL (6.2-8.2)
== END | disposition home or self-care (01) ==
LOC: LABWHC1 08:44
DX: E66.3 Overweight (principal); E34.9 Endocrine disorder, unspecified; E56.9 Vitamin deficiency, unspecified
CPT/HCPCS: 36415; 80053; 80061; 83036; 84443; 85025